=== PATIENT | female | born 1950 | race Caucasian/White ===

== ENCOUNTER → 2016-06-23 | Outpatient (CLI) | payer BC | END | disposition home or self-care (01) | LOC: C.PAPS 14:19 | PROVIDERS: ATTEND Obstetrics & Gynecology | DX: Z01.419 Encounter for gynecological examination (general) (routine) without abnormal findings (principal) ==

== ENCOUNTER 2023-08-29 08:50 | Inpatient (IN) ==
--- NOTE | 2023-08-29 09:29 | Emergency Department Note ---
Impression & Plan Fever, Sepsis, Acute UTI (urinary tract infection) ED Provider Note HISTORY OF PRESENT ILLNESS: Patient is a 73-year-old female presenting with fevers. Patient reports that for the last 4 days she has been having fevers ranging from 101-103. Reports has been alternating Tylenol and ibuprofen with little relief in her symptoms. Reports that her last dose of Tylenol was around 5 AM. States that she has intermittently had some dry heaves but no active vomiting or diarrhea. Denies any recent travel or recent sick contact exposures. Denies any chest pain or shortness of breath or cough. Denies any rashes. She does report some dysuria. Denies any abdominal pain. Reports that her temperature got up to 104 this morning, prompting her to present to the emergency department. ROS: as above PHYSICAL EXAM: Constitutional: Patient appears in no acute distress. HENT: Head: Normocephalic and atraumatic. Eyes: EOMI, PERRL Mouth/Throat: Mucous membranes moist. Neck: Trachea midline. Neck supple. Cardiovascular: Tachycardic with regular rhythm. No murmurs, rubs or gallops. Intact distal pulses. Pulmonary/Chest: No respiratory distress. Breath sounds clear and equal bilaterally. No wheezes or rales. Abdominal: Abdomen soft, no tenderness, rebound or guarding. Musculoskeletal: No edema, tenderness or deformity noted. Skin: Warm and dry. No rash, erythema, pallor or cyanosis Psychiatric: Appropriate mood and affect for situation. Neurological: Alert and keenly responsive. CN II-XII grossly intact, moving all extremities equally and fully. MDM: - Vitals signs showed fever and tachycardia. - History obtained via patient. History as above. - Chronic conditions affecting care:depression; HTN; HLD - Differential diagnoses include, but are not limited to: UTI; pneumonia; viral syndrome; bacteremia; electrolyte abnormality - Order placed for continuous cardiac monitoring. At this time, monitor showed rate of 98 bpm with normal sinus rhythm, per my interpretation. - External medical records reviewed. Gynecology visit note dated 04/18/2023 was reviewed. Patient follows in their clinic for her annual exam. Last Pap smear was in 2017 and negative - EKG interpreted by myself showed normal sinus rhythm. Rate tachycardic at 97 bpm. QT 348. No acute ischemic changes - Laboratory workup interpreted by myself showed leukocytosis (WBC 16.15) with left shift; slight hyponatremia (Na 133); normal creatinine; normal troponin; elevated procalcitonin (6.68) - Viral respiratory panel negative. - Patient given 30 mg IV toradol for fever. - CXR negative for pneumonia, per my interpretation - UA showed evidence of infection - Patient given total of 2L NS - sepsis fluid volume calculation based on ideal body weight 1704.3 mL. - Blood cultures obtained. Patient given 2g IV rocephin - Discussion was had with case managers about patient's case and need for admission - Patient meets sepsis criteria - Hospitalist consulted for admission - Patient admitted to [facility]ist service for further evaluation and management. ASSESSMENT AND PLAN: Diagnosis: fever; UTI; sepsis Plan: admit Past Med/Surg History Medical History Urinary urgency Sleep apnea Sensorineural hearing loss of both ears Prediabetes Obesity Mixed hyperlipidemia Hypertension Hemorrhoids Gastroparesis Esophageal reflux Encounter for routine gynecological examination with Papanicolaou smear of cervix Depression Asthma Allergic rhinitis Surgical History Hx of tubal ligation History of gastric surgery Hx of cholecystectomy Family History Mother Myelogenous leukemia Son Thyroid cancer Father Lung cancer Myocardial infarction Prostate cancer Brother No problems noted. Aunt Breast cancer Denies family history of Ovarian cancer Colorectal cancer Social History Smoking Status: Never smoker Do You Dip or Chew Tobacco: No; Feels Safe at Home: Yes Allergies Allergies Allergy/AdvReac Type Severity Reaction Status Date / Time amoxicillin [From Augmentin] Allergy Verified 04/18/23 13:27 clavulanic acid Allergy Verified 04/18/23 13:27 [From Augmentin] nicotine [From Nicoderm CQ] Allergy Verified 04/18/23 13:27 sulfamethoxazole Allergy Verified 04/18/23 13:27 [From Septra] trimethoprim [From Septra] Allergy Verified 04/18/23 13:27 Home Meds Home Medications Medication Instructions Recorded Confirmed cholecalciferol (vitamin D3) 50 1 PO .TAKE 1 CAPSULE Daily 03/29/20 04/18/23 mcg (2,000 unit) capsule fluticasone propionate 50 intranasal 03/29/20 04/18/23 mcg/actuation nasal spray,suspension multivitamin (Daily Multi-Vitamin 1 tab PO DAILY 03/29/20 04/18/23 tablet) naproxen 500 mg tablet mg PO .TAKE 1 TABLET TWICE DAILY 03/29/20 04/18/23 NEEDED. PRN venlafaxine 37.5 mg 1 mg PO .TAKE 1 CAPSULE Daily 03/29/20 04/18/23 capsule,extended release 24 hr Results & Data (ED) Vital Signs Vital Signs - 24 hr 08/29/23 09:05 08/29/23 09:53 08/29/23 09:53 Temperature 37.7 C H Temperature Source Temporal Artery Scan Pulse Rate 107 H 99 H 98 H Pulse Rate [Right Finger] Respiratory Rate 20 20 Respiratory Effort / Characteristics Non-Labored Respiratory Depth Normal Blood Pressure 134/85 Blood Pressure [Left Arm] Blood Pressure Mean 101 Blood Pressure Mean [Left Arm] Pulse Oximetry 97 98 Oxygen Delivery Method Room Air Room Air Sepsis Recent Fever Within 48 Hours No Sepsis New/Unexplained Change in Mental Status No Sepsis Action Taken by Nursing No Action Required 08/29/23 09:53 Temperature Temperature Source Pulse Rate Pulse Rate [Right Finger] 98 H Respiratory Rate 20 Respiratory Effort / Characteristics Respiratory Depth Blood Pressure Blood Pressure [Left Arm] 125/87 Blood Pressure Mean Blood Pressure Mean [Left Arm] 99 Pulse Oximetry 98 Oxygen Delivery Method Room Air Sepsis Recent Fever Within 48 Hours Sepsis New/Unexplained Change in Mental Status Sepsis Action Taken by Nursing Laboratory Data 08/29/23 09:40 08/29/23 09:40 Lab Results 08/29/23 08/29/23 Range/Units 09:40 Unknown WBC 16.15 H (4.8-10.8) K/ul RBC 4.14 L (4.20-5.40) M/uL Hgb 12.1 (12.0-16.0) g/dl Hct 37.7 (37.0-47.0) % MCV 91.1 (80.0-100.0) fL MCH 29.2 (25.0-34.0) pg MCHC 32.1 (32.0-36.0) g/dL RDW Std Deviation 43.2 (36.4-46.3) fL RDW Coeff of Jovanny 13.1 (11.5-14.5) % Plt Count 411 H (130-400) K/uL MPV 9.4 (9.4-12.4) fL Immature Gran % (Auto) 0.5 % Neut % (Auto) 84.4 % Lymph % (Auto) 4.8 % [place] % (Auto) 10.0 % Eos % (Auto) 0.1 % Baso % (Auto) 0.2 % Neut # (Auto) 13.63 H (1.40-6.50) K/uL Lymph # (Auto) 0.78 L (1.20-3.40) K/uL [place] # (Auto) 1.61 H (0.11-0.59) K/uL Eos # (Auto) 0.01 (0.00-0.50) K/uL Baso # (Auto) 0.04 (0.00-0.20) K/uL Immature Gran # (Auto) 0.08 (0.01-0.20) K/uL PT 11.3 (9.0-12.0) Seconds INR 1.0 (0.9-1.1) VBG pH 7.41 (7.36-7.41) VBG pCO2 39 (38-50) mmHg VBG pO2 27 mmHg VBG HCO3 25 mmol/L VBG O2 Saturation < 60.0 % VBG Base Excess 0.1 mEq/L Sodium 133 L (136-145) mmol/L Potassium 3.6 (3.5-5.1) mmol/L Chloride 101 (98-107) mmol/L Carbon Dioxide 24 (21-32) mmol/L Anion Gap 8 (3-11) BUN 17 (6-23) mg/dl Creatinine 1.00 (0.6-1.2) mg/dl Est Cr Clr Drug Dosing 52.6 ml/min Est GFR ( Amer) 65.6 ml/min Est GFR (Non-Af Amer) 56.6 ml/min BUN/Creatinine Ratio 17.0 (10-20) Glucose 122 H (70-99(Fasting)) mg/dl Lactate 1.3 (0.4-2.0) mmol/L Calcium 8.8 (8.6-10.3) mg/dl Magnesium 2.1 (1.7-2.4) mg/dl Total Bilirubin 0.5 (0.2-1.0) mg/dl Direct Bilirubin 0.2 (0-0.2) mg/dl AST 20 (13-39) U/L ALT 15 (7-52) U/L Alkaline Phosphatase 101 (34-104) U/L Troponin I High Sens 6.6 (0-14) pg/ml Total Protein 7.4 (6.0-8.3) gm/dl Albumin 3.7 (3.4-5.0) gm/dl Procalcitonin 6.68 H (0-0.5) ng/ml Urine Color Yellow Urine Appearance Cloudy A (Clear) Urine pH 5.5 (4.5-7.5) Ur Specific [place] 1.020 (1.000-1.030) Urine Protein 2+ H (Negative) Urine Glucose (UA) Negative (Negative) Urine Ketones Negative (Negative) Urine Blood 3+ H (Negative) Urine Nitrite Negative (Negative) Urine Bilirubin Negative (Negative) Urine Urobilinogen Negative (Negative) Ur Leukocyte Esterase 2+ H (Negative) Urine WBC (Auto) >30 H (0-5) /hpf Urine RBC (Auto) 10-30 H (0-4) /hpf U Hyaline Cast (Auto) 1-5 (0-5) /lpf U Epithel Cells (Auto) 5-10 H (0-5) /lpf Urine Bacteria (Auto) 4+ H (Negative) Adenovirus (PCR) Not Detected (NotDetected) B. pertussis DNA (PCR) Not Detected (NotDetected) B.parapertussis DNA PCR Not Detected (NotDetected) C. pneumoniae DNA (PCR) Not Detected (NotDetected) Coronavirus OC43 (PCR) Not Detected (NotDetected) Coronavirus HKU1 (PCR) Not Detected (NotDetected) Coronavirus 229E (PCR) Not Detected (NotDetected) SARS-CoV-2 (PCR) Not Detected (NotDetected) Coronavirus NL63 (PCR) Not Detected (NotDetected) Human Metapneumovir PCR Not Detected (NotDetected) Influenza Type A (PCR) Not Detected (NotDetected) Influenza Type B (PCR) Not Detected (NotDetected) M. pneumoniae (PCR) Not Detected (NotDetected) Parainfluenza 1 (PCR) Not Detected (NotDetected) Parainfluenza 2 (PCR) Not Detected (NotDetected) Parainfluenza 3 (PCR) Not Detected (NotDetected) Parainfluenza 4 (PCR) Not Detected (NotDetected) RSV (PCR) Not Detected (NotDetected) Entero/Rhino (PCR) Not Detected (NotDetected) Administered Medications Discontinued Medications Sodium Chloride (Nss) 1,000 mls @ 999 mls/hr IV .Q1H1M LAURA Stop: 08/29/23 10:30 Last Infusion: 08/29/23 10:56 Dose: Infused Documented By: Admin: 08/29/23 09:39 Dose: 999 mls/hr Documented By: DENISSE Ceftriaxone Sodium (Rocephin) 2,000 mg in 50 mls @ 100 mls/hr IV NOW STA Stop: 08/29/23 10:41 Last Admin: 08/29/23 10:39 Dose: 100 mls/hr Documented By: DENISSE Ketorolac Tromethamine (Ketorolac 30 Mg/Ml Vial) 30 mg IV NOW ONE Stop: 08/29/23 09:26 Last Admin: 08/29/23 09:39 Dose: 30 mg Documented By: DENISSE Imaging Data Radiologist's Impression: Chest X-Ray 08/29/23 09:16 XR chest 1V portable CLINICAL HISTORY: Sepsis. COMPARISON STUDY: Chest radiograph May 31, 2009. FINDINGS: Lung volumes are normal. Lungs are clear. There is no pneumothorax or pleural effusion. Cardiac size is normal. Mediastinal contours are normal. There is no evidence for pulmonary edema. IMPRESSION: No acute cardiopulmonary findings. ACT 112: Negative or not required by law. Electronically signed by: Christopher Dobbins M.D. 08/29/2023 9:44 AM Discharge Plan Visit Data Chief Complaint: Illness Stated Complaint: HIGH FEVER SINCE SUNDAY, CHILLS, REF BY DOCTOR ED Provider: Anna Alicia Discharge Problem: Fever, Sepsis, Acute UTI (urinary tract infection) Forms Stand Alone Forms: [facility] Prescriptions Prescriptions: No Action cholecalciferol (vitamin D3) 50 mcg (2,000 unit) capsule 1 PO .TAKE 1 CAPSULE Daily naproxen 500 mg tablet PO .TAKE 1 TABLET TWICE DAILY NEEDED. PRN fluticasone propionate 50 mcg/actuation spray,suspension intranasal multivitamin [Daily Multi-Vitamin] Tablet 1 tab PO DAILY venlafaxine 37.5 mg capsule,extended release 24hr 1 mg PO .TAKE 1 CAPSULE Daily Referrals Referrals: Christine oHlt [Primary Care Provider] -
[2023-08-29] MEDS: SODIUM CHLORIDE 0.9% 1,000 ML IV SCH (09:39)
[2023-08-29] MEDS: KETOROLAC 30 MG/ML VIAL IV ONE (09:39)
--- NOTE | 2023-08-29 09:45 | XRay Report ---
XR chest 1V portable CLINICAL HISTORY: Sepsis. COMPARISON STUDY: Chest radiograph May 31, 2009. FINDINGS: Lung volumes are normal. Lungs are clear. There is no pneumothorax or pleural effusion. Car diac size is normal. Mediastinal contours are normal. There is no evidence for pulmonary edema. IMPRESSION: No acute cardiopulmonary findings. ACT 112: Negative or not required by law. Electronically signed by: Christopher Dobbins M.D. 08/29/2023 9:44 AM
[2023-08-29 10:09] LABS: Appearance Urine Cloudy (Clear); Bacteria Urine Automated 4+ (Negative); Bilirubin Urine Negative (Negative); Blood Urine 3+ (Negative); Color Urine Yellow; Glucose Urine UA Negative (Negative); Ketones Urine Negative (Negative); Leukocyte Esterase Urine 2+ (Negative); Nitrite Urine Negative (Negative); Protein Urine 2+ (Negative); Urobilinogen Urine Negative (Negative); WBC Urine Automated >30 /hpf (0-5); pH Urine 5.5 (4.5-7.5)
[2023-08-29 10:11] LABS: Base Excess VBG 0.1 mEq/L; HCO3 VBG 25 mmol/L; Oxygen Saturation VBG < 60.0 %; PCO2 VBG 39 mmHg (38-50); PO2 VBG 27 mmHg; pH VBG 7.41 (7.36-7.41)
[2023-08-29 10:26] LABS: Basophils # (auto) 0.04 K/uL (0.00-0.20); Basophils % (auto) 0.2 %; Eosinophils # (auto) 0.01 K/uL (0.00-0.50); Eosinophils % (auto) 0.1 %; Hematocrit (blood only) 37.7 % (37.0-47.0); Hemoglobin 12.1 g/dl (12.0-16.0); Immature Granulocytes # (auto) 0.08 K/uL (0.01-0.20); Immature Granulocytes % (auto) 0.5 %; Lymphocytes # (auto) 0.78 K/uL (1.20-3.40); Lymphocytes % (auto) 4.8 %; Mean Corpuscular Hemoglobin 29.2 pg (25.0-34.0); Mean Corpuscular Hgb Conc 32.1 g/dL (32.0-36.0); Mean Corpuscular Volume 91.1 fL (80.0-100.0); Mean Platelet Volume 9.4 fL (9.4-12.4); Monocytes # (auto) 1.61 K/uL (0.11-0.59); Neutrophils # (auto) 13.63 K/uL (1.40-6.50); Neutrophils % (auto) 84.4 %; Platelet Count 411 K/uL (130-400); RDW Coefficient of Variation 13.1 % (11.5-14.5); RDW Standard Deviation 43.2 fL (36.4-46.3); Red Blood Count 4.14 M/uL (4.20-5.40); White Blood Count 16.15 K/ul (4.8-10.8)
[2023-08-29] MEDS: cefTRIAXone SODIUM 2,000 MG/50 ML BAG IV STA (10:39)
[2023-08-29 10:43] LABS: Albumin Level 3.7 gm/dl (3.4-5.0); Bilirubin Direct 0.2 mg/dl (0-0.2); Bilirubin,Total 0.5 mg/dl (0.2-1.0); Calcium 8.8 mg/dl (8.6-10.3); Creatinine Clr Calc Pharmacy 52.6 ml/min; Est GFR (African American) 65.6 ml/min; Est GFR (Non-African American) 56.6 ml/min; Magnesium 2.1 mg/dl (1.7-2.4); Potassium 3.6 mmol/L (3.5-5.1); Total Protein 7.4 gm/dl (6.0-8.3)
[2023-08-29 10:48] LABS: Troponin I High Sensitivity 6.6 pg/ml (0-14)
[2023-08-29 10:51] LABS: Prothrombin Time 11.3 Seconds (9.0-12.0)
--- NOTE | 2023-08-29 11:03 | History & Physical Report ---
Date of Service August 29, 2023 Assessment & Plan (1) Acute UTI (urinary tract infection): Plan: Intermittent fever, chills, dysuria, burning with urination, and body-aches that began on Friday 08/25 Leukocytosis at 16.15 with a neutrophil predominance Patient is febrile at 37.7 C UA positive on arrival Rocephin 2000 mg IV q24h Follow UCx Acetaminophen as needed for fever/pain Zofran as needed for nausea A.m. CBC, BMP (2) Sepsis: Plan: Urinary source Procalcitonin elevated at 6.68 Lactate WNL at 1.3 Blood cultures ordered, pending IVF resuscitation in the ED with NSS 1000 mL x 2 Continue IVF with Plasma-Lyte at 100 mL/hr x 1 (3) Depression: Plan: Continue venlafaxine Plan Disposition: Admit to [facility] Full code Regular diet DVT PPx: Lovenox 40 mg SQ q24h History of Present Illness Chief Complaint: Fever, chills, body ache, dysuria Primary Care Provider: Milobetito Jonathon Paul is a pleasant 73-year-old female with PMH of She presented for fever, chills, and body aches that started on Friday 08/25. She took her temperature at home on Sunday and it was 103.9 F. She has not had intermittent fevers on Sunday and Sunday. Patient has been alternating between Tylenol (2 tablets) and ibuprofen (2 tablets) for her symptoms. She has also been using Vicks VapoRub, as well as a cold and flu cough suppressant, which has been helping. No sick contacts. No history of UTIs. No recent change in diet. No history of kidney stones. She is not currently having abdominal pain, suprapubic pain, flank pain, or back pain. She does note increased urinary frequency, dysuria, and burning with urination. Patient only takes venlafaxine as a prescription medication, but she did not take it this morning on 08/28. She reports she takes it for stress. Patient is mildly tachycardic around 100 bpm and febrile at 37.7 C at time of admission. ED course: Rocephin 2000 mg IV Toradol 30 mg IV NSS 1000 mL IV ROS: Patient endorses fever, chills, night-sweats, body aches, ZARAGOZA, nausea, burning with urination, dysuria, or increased urinary frequency. Patient denies chest pain, chest tightness, SOB, cough, back pain, flank pain, vomiting, diarrhea, constipation, or blood in urine/stool. Allergies Allergy/AdvReac Type Severity Reaction Status Date / Time amoxicillin [From Augmentin] Allergy Verified 04/18/23 13:27 clavulanic acid Allergy Verified 04/18/23 13:27 [From Augmentin] nicotine [From Nicoderm CQ] Allergy Verified 04/18/23 13:27 sulfamethoxazole Allergy Verified 04/18/23 13:27 [From Septra] trimethoprim [From Septra] Allergy Verified 04/18/23 13:27 Home Medications Medication Instructions Recorded Confirmed Type cholecalciferol (vitamin D3) 50 1 PO .TAKE 1 CAPSULE Daily 03/29/20 04/18/23 History mcg (2,000 unit) capsule fluticasone propionate 50 intranasal 03/29/20 04/18/23 History mcg/actuation nasal spray,suspension multivitamin (Daily Multi-Vitamin 1 tab PO DAILY 03/29/20 04/18/23 History tablet) naproxen 500 mg tablet mg PO .TAKE 1 TABLET TWICE DAILY 03/29/20 04/18/23 History NEEDED. PRN venlafaxine 37.5 mg 1 mg PO .TAKE 1 CAPSULE Daily 03/29/20 04/18/23 History capsule,extended release 24 hr Past Med/Surg History Medical History Urinary urgency Sleep apnea Sensorineural hearing loss of both ears Prediabetes Obesity Mixed hyperlipidemia Hypertension Hemorrhoids Gastroparesis Esophageal reflux Encounter for routine gynecological examination with Papanicolaou smear of cervix Depression Asthma Allergic rhinitis Surgical History Hx of tubal ligation History of gastric surgery Hx of cholecystectomy Family History Mother Myelogenous leukemia Son Thyroid cancer Father Lung cancer Myocardial infarction Prostate cancer Brother No problems noted. Aunt Breast cancer Denies family history of Ovarian cancer Colorectal cancer Social History Smoking Status: Never smoker Do You Dip or Chew Tobacco: No; Feels Safe at Home: Yes Review of Systems Review of Systems: See HPI above Physical Exam Physical Exam: General: no acute distress; pleasant affect; non-toxic appearing; well- nourished; cooperative; 98% SpO2 on RA HEENT: normocephalic, atraumatic; no scleral icterus; PERRLA; vision and hearing grossly intact Neck: supple; no lymphadenopathy; trachea midline Skin: warm, dry without signs of tenting; no cyanosis; no rashes, bruising, lesions, or erythema noted CV: chest wall NTP; RR, mild tachycardia around 100 bpm; S1/S2 normal; no murmurs/rubs/gallops; pulses intact and symmetric at radial, DP, and PT Lungs: no acute respiratory distress; symmetrical chest wall expansion; clear breath sounds across all lung [place] w/o adventitious sounds; no wheezing ABD: Soft, NTP; no suprapubic tenderness; BS present; no rebound/guarding; no distention MSK: no tics or fasciculations; no edema noted in the LEs b/l, nonerythematous Neuro: A&Ox3; normal mood and affect; fluent speech; sensation grossly intact in the LEs b/l Results & Data Results & Data Vital Signs (Past 12 Hours) Vital Signs Temp Pulse Pulse Resp BP BP Pulse Ox 08/29/23 09:53 98 H 20 125/87 98 08/29/23 09:53 98 H 20 98 08/29/23 09:53 99 H 08/29/23 09:05 37.7 C H 107 H 20 134/85 97 O2 Del Method 08/29/23 09:53 Room Air 08/29/23 09:53 Room Air 08/29/23 09:53 08/29/23 09:05 Room Air Laboratory Results Abnormal lab results 08/29/23 Range/Units 09:40 WBC 16.15 H (4.8-10.8) K/ul RBC 4.14 L (4.20-5.40) M/uL Plt Count 411 H (130-400) K/uL Neut # (Auto) 13.63 H (1.40-6.50) K/uL Lymph # (Auto) 0.78 L (1.20-3.40) K/uL [place] # (Auto) 1.61 H (0.11-0.59) K/uL Sodium 133 L (136-145) mmol/L Glucose 122 H (70-99(Fasting)) mg/dl Procalcitonin 6.68 H (0-0.5) ng/ml Urine Appearance Cloudy A (Clear) Urine Protein 2+ H (Negative) Urine Blood 3+ H (Negative) Ur Leukocyte Esterase 2+ H (Negative) Urine WBC (Auto) >30 H (0-5) /hpf Urine RBC (Auto) 10-30 H (0-4) /hpf U Epithel Cells (Auto) 5-10 H (0-5) /lpf Urine Bacteria (Auto) 4+ H (Negative) Diagnostic Findings Chest X-Ray 08/29/23 09:16 XR chest 1V portable CLINICAL HISTORY: Sepsis. COMPARISON STUDY: Chest radiograph May 31, 2009. FINDINGS: Lung volumes are normal. Lungs are clear. There is no pneumothorax or pleural effusion. Cardiac size is normal. Mediastinal contours are normal. There is no evidence for pulmonary edema. IMPRESSION: No acute cardiopulmonary findings. ACT 112: Negative or not required by law. Electronically signed by: Christopher Dobbins M.D. 08/29/2023 9:44 AM Code Status & VTE Plan Code Status Full code VTE Prophylaxis Plan VTE Prophylaxis will be ordered: Yes Supervising Physician Co-Signing Physician Notes Patient seen and examined, chart reviewed, case discussed with Dat Valencia and I agree with the assessment and plan as above except as otherwise noted Labs and images reviewed Beverly is a 73-year-old female who presents with fever, chills, body aches, and some chest tightness with pain. She is seen at the bedside, reports that she has had dysuria, urgency, and some burning with urination in addition to fever. She has not had any cough or sputum production. She feels she had a little bit of chest tightness but no pain, and this actually seemed improved with Vicks VapoRub. Denies any pain radiating into her left shoulder or neck, has not had shortness of breath, and has not had exertional angina. No prior cardiac history. She has no chest pain at time of admitting assessment. She does not have any abdominal flank or back pain she is found to be tachycardic with a leukocytosis and procalcitonin of 6.68. UA is infected appearing. Chest x-ray is clear. Bio fire is negative. Troponin is normal, EKG is without acute ischemic changes. Lactate is not elevated. IBW 30 cc fluid calculations 1704,ABW 2274 patient has received 2 L NSS by time of admission consultation. +1 L additional at maintenance. She is not hypotensive. Blood and urine cultures are pending, continue empiric Rocephin and adjust based on sensitivity results. She does not show signs of ACS at time of admission. She is nontoxic at time of admitting assessment and normotensive. Suspect septic UTI with gram-negative bacteremia. Agree with assessment and management as above. PG Care Time/CCT Total # of Minutes Spent Total Time Spent with Patient: Total time spent is greater than 50% in coordination of care (as documented) at patient's floor/unit and/or counseling patient: [place] [address] INT INP/OBS CARE 2/55MIN Patient Type New History Comprehensive Exam Comprehensive Medical Decision Making Moderate Complexity Diagnoses Acute UTI (urinary tract infection) N39.0 Sepsis A41.9 Depression F32.A
[2023-08-29 11:09] LABS: Adenovirus PCR Not Detected (NotDetected); Bordetella parapertussis PCR Not Detected (NotDetected); Bordetella pertussis PCR Not Detected (NotDetected); Chlamydia pneumoniae PCR Not Detected (NotDetected); Coronavirus 229E PCR Not Detected (NotDetected); Coronavirus CoV-2 (COVID19)PCR Not Detected (NotDetected); Coronavirus HKU1 PCR Not Detected (NotDetected); Coronavirus NL63 PCR Not Detected (NotDetected); Coronavirus OC43PCR Not Detected (NotDetected); Human Metapneumovirus PCR Not Detected (NotDetected); Influenza A PCR Not Detected (NotDetected); Influenza B PCR Not Detected (NotDetected); Mycoplasma pneumoniae PCR Not Detected (NotDetected); Parainfluenza Virus 1 PCR Not Detected (NotDetected); Parainfluenza Virus 2 PCR Not Detected (NotDetected); Parainfluenza Virus 3 PCR Not Detected (NotDetected); Parainfluenza Virus 4 PCR Not Detected (NotDetected); Respiratory Syncytial VirusPCR Not Detected (NotDetected); Rhinovirus/Enterovirus PCR Not Detected (NotDetected)
[2023-08-29] MEDS: SODIUM CHLORIDE 0.9% 1,000 ML IV ONE (11:26)
[2023-08-29] MEDS: VENLAFAXINE HCL XR 37.5 MG CAPXR PO SCH ×2 (13:30→15:39)
[2023-08-29] MEDS: PLASMA-LYTE A 1,000 ML IV SCH (13:57)
[2023-08-29] MEDS: ENOXAPARIN INJ 40 MG/0.4 ML SYR SQ SCH (13:59)
--- NOTE | 2023-08-29 16:14 | Electrocardiogram Report ---
Test Reason : Blood Pressure : / mmHG Vent. Rate : 097 BPM Atrial Rate : 097 BPM P-R Int : 120 ms QRS Dur : 070 ms QT Int : 348 ms P-R-T Axes : 048 014 033 degrees QTc Int : 441 ms Normal sinus rhythm Possible Left atrial enlargement Borderline ECG When compared with ECG of 25-MAY-2004 18:25, No significant change was found Confirmed by Rakesh Sarmiento ([id number]) on 08/29/2023 4:14:12 PM Referred By: REFERRED SELF Confirmed By:Rakesh Sarmiento
[2023-08-29] MEDS: ONDANSETRON INJ 2 MG/ML 2 ML VIAL IV PRN (18:07)
[2023-08-29] MEDS: ACETAMINOPHEN 500 MG TAB PO PRN (19:49)
[2023-08-29 22:46] LABS: A calco-baum cmplx NotReported Not Detected (NotDetected); Bact fragilis Not Reported Not Detected (NotDetected); Blood Culture Id Panel See PCR Comment (NotDetected); C auris Not Reported Not Detected (NotDetected); CTX-M Resistant Gene Not Detected (NotDetected); Calbicans Not Reported Not Detected (NotDetected); Candida glabrata Not Reported Not Detected (NotDetected); Candida krusei Not Reported Not Detected (NotDetected); Cneoformans/gatti Not Reported Not Detected (NotDetected); Cparapsilosis Not Reported Not Detected (NotDetected); E cloacae compx Not Reported Not Detected (NotDetected); Efaecalis Not Reported Not Detected (NotDetected); Efaecium Not Reported Not Detected (NotDetected); Enterobacterales DETECTED (NotDetected); Enterobacterales Not Reported DETECTED (NotDetected); Escherichia coli Not Reported DETECTED (NotDetected); H influenzae Not Reported Not Detected (NotDetected); IMP Resistant Gene Not Detected (NotDetected); K aerogenes Not Reported Not Detected (NotDetected); KPC Resistant Gene Not Detected (NotDetected); Koxytoca Not Reported Not Detected (NotDetected); Kpneumoniae grp Not Reported Not Detected (NotDetected); Lmonocyt Not Reported Not Detected (NotDetected); N meningitidis Not Reported Not Detected (NotDetected); NDM Resistant Gene Not Detected (NotDetected); OXA 48 Like Resistant Gene Not Detected (NotDetected); P aeruginosa Not Reported Not Detected (NotDetected); Proteus spp Not Reported Not Detected (NotDetected); Salmonella spp Not Reported Not Detected (NotDetected); Smarcescens Not Reported Not Detected (NotDetected); Staph lugdunensis Not Reported Not Detected (NotDetected); Staph spp. Not Reported Not Detected (NotDetected); Staphaureus Not Reported Not Detected (NotDetected); Staphepi Not Reported Not Detected (NotDetected); Stenmaltophilia Not Reported Not Detected (NotDetected); Strep agal(GrpB) Not Reported Not Detected (NotDetected); Strep pneum Not Reported Not Detected (NotDetected); Strep pyog (GrpA) Not Reported Not Detected (NotDetected); Strep spp Not Reported Not Detected (NotDetected); VIM Resistant Gene Not Detected (NotDetected); mcr-1 Colistin Resistant Gene Not Detected (NotDetected)
[2023-08-30 07:44] LABS: Basophils # (auto) 0.03 K/uL (0.00-0.20); Basophils % (auto) 0.3 %; Hemoglobin 9.8 g/dl (12.0-16.0); Immature Granulocytes # (auto) 0.06 K/uL (0.01-0.20); Immature Granulocytes % (auto) 0.5 %; Lymphocytes # (auto) 1.48 K/uL (1.20-3.40); Lymphocytes % (auto) 12.4 %; Mean Corpuscular Hemoglobin 29.2 pg (25.0-34.0); Mean Corpuscular Hgb Conc 32.7 g/dL (32.0-36.0); Mean Corpuscular Volume 89.3 fL (80.0-100.0); Mean Platelet Volume 9.1 fL (9.4-12.4); Monocytes # (auto) 1.13 K/uL (0.11-0.59); Monocytes % (auto) 9.5 %; Neutrophils # (auto) 9.19 K/uL (1.40-6.50); Neutrophils % (auto) 77.3 %; Platelet Count 355 K/uL (130-400); RDW Coefficient of Variation 13.3 % (11.5-14.5); RDW Standard Deviation 43.8 fL (36.4-46.3); Red Blood Count 3.36 M/uL (4.20-5.40); White Blood Count 11.89 K/ul (4.8-10.8)
[2023-08-30 08:11] LABS: BUN Creatinine Ratio 12.3 (10-20); Creatinine Clr Calc Pharmacy 64.8 ml/min; Est GFR (African American) 84.7 ml/min; Est GFR (Non-African American) 73.1 ml/min; Potassium 3.6 mmol/L (3.5-5.1)
[2023-08-30] MEDS: cefTRIAXone SODIUM 2,000 MG in DEXTROSE 5 % MINI-B 50 ML IV SCH (09:29)
--- NOTE | 2023-08-30 18:50 | Hospitalist Progress Note ---
Date of Service August 30, 2023 Assessment & Plan (1) Acute UTI (urinary tract infection): Plan: Patient presented to ED with intermittent fever and chills, dysuria, and bodyaches that began on 08/25 Leukocytosis on admission improving UA positive on admission. Preliminary urine culture shows gram-negative bacilli. Continue to monitor for sensitivities. Ceftriaxone 2 g IV Q24H (last dose 09/09/2023) Acetaminophen as needed for fever/pain (2) Sepsis: Plan: Septic on arrival to ED secondary to urinary source, with elevated procalcitonin with normal lactic acid Preliminary blood cultures positive for gram-negative bacilli. PCR detected E. coli and Enterobacterales. Continue to monitor for sensitivities. Continue ceftriaxone as noted above Plan Full code DVT PPx: Lovenox 40 mg SQ q24h Admission and Anticipated Discharge Date Admission Date: August 29, 2023 Subjective Patient seen and evaluated at bedside. She was resting comfortably in bed and had no complaints. She reports her dysuria has resolved. She stated desire to go home, however we discussed waiting for blood culture and urine culture to be resulted with sensitivities for antibiotic decision making. She was agreeable to this. She denies fever, chills, chest pain, shortness of breath, abdominal pain, urinary symptoms. Physical Exam Physical Exam: General: No acute distress, nondiaphoretic, well-developed, well-nourished. Skin: The skin was without rashes, erythema, edema, or bruising. Cardiac: Regular rate and rhythm without murmurs gallops or rubs. Pulm: Clear to auscultation bilaterally without wheezes, rales or rhonchi. No retractions or accessory muscle use. Abdominal: Positive bowel sounds x 4. Soft, nontender, without masses or orga nomegaly. No guarding or rebound tenderness. Neuro: A&O x3. No focal neurological deficits. Results & Data Results & Data Vital Signs (Past 12 Hours) Vital Signs Temp Pulse Resp BP Pulse Ox O2 Del Method 08/30/23 13:52 37.1 C 82 16 107/71 96 Room Air 08/30/23 07:31 37.3 C 98 H 16 140/82 95 Room Air Laboratory Results Reviewed CBC Reviewed chemistries Reviewed urine culture Reviewed blood cultures PG Care Time/CCT Total # of Minutes Spent Total Time Spent with Patient: Total time spent is greater than 50% in coordination of care (as documented) at patient's floor/unit and/or counseling patient: Coding Level of Care Code 71451 SUB INP/OBS CARE 50MIN Diagnoses Acute UTI (urinary tract infection) N39.0 Sepsis A41.9
[2023-08-30] MEDS: IBUPROFEN 600 MG TAB PO STA (23:30)
[2023-08-31 07:17] LABS: Basophils # (auto) 0.02 K/uL (0.00-0.20); Basophils % (auto) 0.3 %; Eosinophils % (auto) 2.5 %; Immature Granulocytes # (auto) 0.04 K/uL (0.01-0.20); Immature Granulocytes % (auto) 0.5 %; Lymphocytes # (auto) 1.52 K/uL (1.20-3.40); Mean Corpuscular Hemoglobin 29.5 pg (25.0-34.0); Mean Corpuscular Hgb Conc 32.4 g/dL (32.0-36.0); Mean Corpuscular Volume 91.2 fL (80.0-100.0); Mean Platelet Volume 9.2 fL (9.4-12.4); Monocytes # (auto) 1.06 K/uL (0.11-0.59); Monocytes % (auto) 13.3 %; Neutrophils # (auto) 5.16 K/uL (1.40-6.50); Neutrophils % (auto) 64.4 %; Platelet Count 359 K/uL (130-400); RDW Coefficient of Variation 13.4 % (11.5-14.5); RDW Standard Deviation 44.9 fL (36.4-46.3); Red Blood Count 3.73 M/uL (4.20-5.40)
[2023-08-31 07:45] LABS: BUN Creatinine Ratio 14.1 (10-20); Creatinine Clr Calc Pharmacy 73.9 ml/min; Est GFR (African American) 99.3 ml/min; Est GFR (Non-African American) 85.7 ml/min; Potassium 3.4 mmol/L (3.5-5.1)
--- NOTE | 2023-08-31 16:05 | Discharge Summary ---
Date of Service August 31, 2023 Admission HPI Per Admitting Provider Beverly is a pleasant 73-year-old female with PMH of She presented for fever, chills, and body aches that started on Friday 08/25. She took her temperature at home on Sunday and it was 103.9 F. She has not had intermittent fevers on Sunday and Sunday. Patient has been alternating between Tylenol (2 tablets) and ibuprofen (2 tablets) for her symptoms. She has also been using Vicks VapoRub, as well as a cold and flu cough suppressant, which has been helping. No sick contacts. No history of UTIs. No recent change in diet. No history of kidney stones. She is not currently having abdominal pain, suprapubic pain, flank pain, or back pain. She does note increased urinary frequency, dysuria, and burning with urination. Patient only takes venlafaxine as a prescription medication, but she did not take it this morning on 08/28. She reports she takes it for stress. Patient is mildly tachycardic around 100 bpm and febrile at 37.7 C at time of admission. ED course: Rocephin 2000 mg IV Toradol 30 mg IV NSS 1000 mL IV ROS: Patient endorses fever, chills, night-sweats, body aches, ZARAGOZA, nausea, burning with urination, dysuria, or increased urinary frequency. Patient denies chest pain, chest tightness, SOB, cough, back pain, flank pain, vomiting, diarrhea, constipation, or blood in urine/stool. Admission Exam Per Admitting Provider General: no acute distress; pleasant affect; non-toxic appearing; well- nourished; cooperative; 98% SpO2 on RA HEENT: normocephalic, atraumatic; no scleral icterus; PERRLA; vision and hearing grossly intact Neck: supple; no lymphadenopathy; trachea midline Skin: warm, dry without signs of tenting; no cyanosis; no rashes, bruising, lesions, or erythema noted CV: chest wall NTP; RR, mild tachycardia around 100 bpm; S1/S2 normal; no murmurs/rubs/gallops; pulses intact and symmetric at radial, DP, and PT Lungs: no acute respiratory distress; symmetrical chest wall expansion; clear breath sounds across all lung noland w/o adventitious sounds; no wheezing ABD: Soft, NTP; no suprapubic tenderness; BS present; no rebound/guarding; no distention MSK: no tics or fasciculations; no edema noted in the LEs b/l, nonerythematous Neuro: A&Ox3; normal mood and affect; fluent speech; sensation grossly intact in the LEs b/l Principal Diagnosis Acute UTI Sepsis from urinary source Discharge Exam General: No acute distress, nondiaphoretic, well-developed, well-nourished. Skin: The skin was without rashes, erythema, edema, or bruising. Cardiac: Regular rate and rhythm without murmurs gallops or rubs. Pulm: Clear to auscultation bilaterally without wheezes, rales or rhonchi. No retractions or accessory muscle use. Abdominal: Positive bowel sounds x 4. Soft, nontender, without masses or organomegaly. No guarding or rebound tenderness. Neuro: A&O x3. No focal neurological deficits. Discharge Data Allergies Allergy/AdvReac Type Severity Reaction Status Date / Time amoxicillin [From Augmentin] Allergy Verified 04/18/23 13:27 clavulanic acid Allergy Verified 04/18/23 13:27 [From Augmentin] nicotine [From Nicoderm CQ] Allergy Verified 04/18/23 13:27 sulfamethoxazole Allergy Verified 04/18/23 13:27 [From Septra] trimethoprim [From Septra] Allergy Verified 04/18/23 13:27 Consultations 08/29/23 11:04 ED Decision to Admit Stat Hospital Course (1) Acute UTI (urinary tract infection): - Patient presented to ED with intermittent fever and chills, dysuria, and body aches that began on 08/25 - Leukocytosis present on admission, resolved - UA positive on admission. Urine culture positive for pansensitive E. coli. - Ciprofloxacin upon discharge until 09/09/2023 (2) Sepsis: - Septic on arrival to ED secondary to urinary source, with elevated procalcitonin with normal lactic acid - Blood cultures positive for pansensitive E. coli. Antibiotics on discharge as noted above. Plan CODE STATUS: Full code Total Time Total Time Spent Total Time Spent (In Minutes): Greater than 30 minutes spent completing this discharge process including direct patient care, medication reconciliation, documentation, review of labs and images, and coordination of care. Discharge Plan Discharge Items Patient Disposition: Home - Self-Care Reason For Visit: SEPSIS, UTI Discharge Diagnosis: Urinary tract infection (UTI) Bacteremia (bacteria in blood) Activity: Resume your previous activity Non-emergency contact: Primary Care Provider Call non-emergency contact if: you have any medication questions and your symptoms worsen Follow-up/Referrals: Christine Holt [Primary Care Provider] - 09/04/23 10:25 am (Dr. Rose and Dr. Holt will be attending ) Diet: Regular Addtl Attending Provider Instructions: Mrs. Washington, You were admitted to the hospital for a urinary tract infection (UTI) and sepsis. This is what caused your fever and chills, painful urination, and body aches that brought you into the hospital. You were given IV antibiotics while in the hospital, and you will continue taking oral antibiotics upon discharge. Upon discharge from the hospital: * Please take your oral antibiotic (ciprofloxacin) until 09/09/2023. -- You will take this antibiotic twice a day. -- It is important to take this exactly as directed. Do not stop taking it until all of the make medication is gone, even if you feel better. The infection may not go away fully and return if you stop taking the antibiotic too soon. -- This will treat the UTI as well as the bacteria in your blood. -- Avoid taking this with foods containing large amounts of calcium, like milk, yogurt, or cheese. -- This medicine may make you dizzy or lightheaded. Avoid driving until you know how it will affect you. -- Other rare, but important side effects to be aware of include confusion, difficulty sleeping or remembering things, and tendinitis (inflammation of a tendon). Please return to the hospital if you experience any of the following: Fever or chills, shortness of breath, chest pain, fast heartbeat, fast breathing, dizziness, confusion, less urination, or painful urination. It was a pleasure taking care of you while you are in the hospital, Juliet Ohara PA-C Pending Studies at Discharge: No Stand-Alone Forms: My [facility] [employer], Smoking Cessation Medications and DC Order Prescriptions: New ciprofloxacin HCl [Cipro] 500 mg tablet 500 mg PO BID Qty: 18 0RF Continued cholecalciferol (vitamin D3) 50 mcg (2,000 unit) capsule 0 mcg PO DAILY Rx Instructions: unable to verify with patient/pharmacy 08/29/23 naproxen 500 mg tablet 0 mg PO .TAKE 1 TABLET TWICE DAILY NEEDED. PRN (Reason: pain/fever) Rx Instructions: unable to verify with patient/pharmacy 08/29/23 fluticasone propionate 50 mcg/actuation spray,suspension See Rx Instructions .ROUTE .COMPLEX Rx Instructions: unable to verify with patient/pharmacy 08/29/23 multivitamin [Daily Multi-Vitamin] Tablet 1 tab PO DAILY Rx Instructions: unable to verify with patient/pharmacy 08/29/23 venlafaxine 37.5 mg capsule,extended release 24hr 37.5 mg PO DAILY Tylenol See Rx Instructions .ROUTE .COMPLEX PRN (Reason: pain/fever) Rx Instructions: as directed, otc ibuprofen See Rx Instructions .ROUTE .COMPLEX PRN (Reason: pain/fever) Rx Instructions: as directed, otc Discharge Orders: Discharge Order (Routine); Ordered 08/31/23 Ordered By: uJliet Benson/Other Patient Handouts: Urinary Tract Infections in Women, Understanding Sepsis Admission Data Admit Date/Time: 08/29/23 11:27 Attending Provider: Valdemar Garcia Admit Provider: Rodrigo Ryan Primary Care Provider: Christine Holt Other Providers: Rodrigo Ryan Other Interventions: Discharge Summary Assessment (RN) Last Done: 08/31/23 12:44 Coding Level of Care Code 00901 INP/OBS DISCH >30 MIN Diagnoses Acute UTI (urinary tract infection) N39.0 Sepsis A41.9
== END 2023-08-31 13:18 | disposition home or self-care (01) | DRG 872 ==
LOC: ED 08:50 → SUATTDRO 11:27 → 3W 11:27

== ENCOUNTER 2025-05-18 14:50 | Inpatient (IN) ==
--- NOTE | 2025-05-18 15:20 | Emergency Department Note ---
ED Visit Note I was consulted by the Advanced Practice Provider, Magdalene Long PA-C. I personally made/approved the management plan and take responsibility for the patient management. I performed a substantive portion of the visit. This includes the aspects of: -History/Physical/Personally seeing the patient -MDM .
[2025-05-18] MEDS ORDERED: VANCOMYCIN CONSULT ACTIVE PRN ×2 (15:22→17:12)
--- NOTE | 2025-05-18 15:24 | Emergency Department Note ---
Impression & Plan Toe infection, Cellulitis, Osteomyelitis ED Provider Note CHIEF COMPLAINT: right 2nd toe redness, pain, discharge HISTORY OF PRESENT ILLNESS: This 75-year-old female patient presents to the emergency department via private vehicle for evaluation of right second toe redness, pain, and discharge. Symptoms started 2 to 3 days ago. Patient states that she noticed some swelling and irritation and thought maybe there was an insect or spider bite. The patient states that she then felt that the toe was swollen and itchy and she had been scratching at it. She then noticed a slight open wound and some increased swelling, so she put a needle into the wound to try to get it to drain. She states there has not been significant drainage unless she picks at it. She states the redness and pain is extending into the foot. She does report a history of psoriasis on her foot and ankle. She states she is unaware of any lesions on the toes. She denies any fever or chills. No nausea or vomiting. No recent injury or trauma to the toe. She denies any numbness or tingling. No history of similar symptoms. Tetanus vaccination is believed to be up-to-date. History provided by: Patient REVIEW OF SYSTEMS: A 10 system review of systems was performed with positives and pertinent negatives listed in the history of present illness. All other systems were reviewed and are negative. ALLERGIES: Augmentin, NicoDerm, Septra PHYSICAL EXAM: VITALS: Vitals are noted on the nurse's note and reviewed by myself. GENERAL: This is a 75-year-old female, in no acute distress, nondiaphoretic, well-developed well-nourished. SKIN: Erythema and edema of the right 2nd toe with pinpoint open wound with purulent discharge. Erythema extends toward the proximal distal aspect of the right foot. There is erythematous patches with fine scales on the anterior ankle and dorsal foot more proximally which is consistent with the patient psoriasis lesions. The skin was otherwise without rashes, erythema, edema, or bruising. There is no tenting of the skin. Capillary refill less than 2 seconds. HEAD: Normocephalic atraumatic. EYES: Conjunctivae without injection, sclerae without icterus. MOUTH: Mucous membranes moist. NECK: Supple without nuchal rigidity. No JVD. HEART: Regular rate and rhythm without murmurs gallops or rubs. LUNGS: Clear to auscultation bilaterally without wheezes, rales or rhonchi. No retractions or accessory muscle use. MUSCULOSKELETAL: No muscle atrophy, erythema, or edema noted. Full range of motion without joint tenderness in all extremities. No tenderness to palpation. Normal gait. Strength 5/5 throughout. NEURO: Patient was alert and oriented to person place and time. Normal sensation to light and sharp touch. Deep tendon reflexes 2+ throughout. No focal neurological deficits. An order was placed for continuous brass reclaimer. The monitor showed a normal sinus rhythm at a ventricular rate of 83 bpm, per my interpretation. Imaging as interpreted by myself and the radiologist revealed concern for osteomyelitis of the right second toe, with radiologist interpretation as above. I agree with the radiologist's findings as based upon my independent interpretation. EMERGENCY DEPARTMENT COURSE: The patient was evaluated as above. The patient presents to the emergency department for evaluation of right second toe redness, pain, discharge. This started 3 days ago and the patient thought she had some sort of a bite. On examination, there is purulent discharge from the wound. The entire second digit is erythematous and edematous. We did elect to perform workup. IV access was obtained, labs were drawn. The patient was hydrated with IV fluids and medicated with vancomycin and ceftriaxone. Labs reviewed. Per my interpretation, leukocytosis of 11,000. No anemia or thrombocytopenia. Renal, hepatic function and electrolytes without significant abnormality. Procalcitonin less than 0.02. CRP is normal, ESR is elevated at 40. X-ray completed reviewed by myself radiologist as noted. This is concerning for osteomyelitis. I discussed findings with patient at bedside. 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 The patient was agreeable. The patient be admitted to the [facility]. I discussed the case with Dr. March. Please see hospitalist dictation regarding ongoing management of this patient. Case was discussed with the attending physician. This visit is during a period of high volume and high acuity in the emergency department. I attest that I have personally reviewed the patient medication list. I attest that I have reviewed the patient's blood pressure and it was found to be elevated. GCS: 15 In the evaluation and treatment of this patient the following differential diagnoses were entertained: Cellulitis, abscess, osteomyelitis, malignancy, among others The chart was completed utilizing [employer] Speech voice recognition software. Grammatical errors, random word insertions, pronoun errors, and incomplete sentences are an occasional consequence of this system due to software limitations, ambient noise, and hardware issues. Any formal questions or concerns about the content, text, or information contained within the body of this dictation should be directly addressed to the provider for clarification. Past Med/Surg History Problem List (Updated 05/18/25 @ 22:31 by Magdalene Long PA-C) Osteomyelitis (Acute) Cellulitis (Acute) Toe infection (Acute) MRSA cellulitis left labial abscess 09/22/23 Vulvar abscess Depression Acute UTI (urinary tract infection) (Acute) Sepsis UTI (urinary tract infection) Pelvic pain Encounter for routine gynecological examination with Papanicolaou smear of cervix Postmenopausal estrogen deficiency Medical History Urinary urgency Sleep apnea Sensorineural hearing loss of both ears Prediabetes Obesity Mixed hyperlipidemia Hypertension Hemorrhoids Gastroparesis Esophageal reflux Asthma Allergic rhinitis Surgical History Hx of tubal ligation History of gastric surgery Hx of cholecystectomy Family History Mother Myelogenous leukemia Son Thyroid cancer Father Lung cancer Myocardial infarction Prostate cancer Brother No problems noted. Aunt Breast cancer Denies family history of Ovarian cancer Colorectal cancer Social History Smoking Status: Former smoker Do You Dip or Chew Tobacco: No; Hx Alcohol Use: No Hx Substance Use: No Preferred Language: Moldovan Communication Ability: Effective Dog Trainer Required: No Beliefs That Will Affect Care: None Current Living Situation: Spouse Feels Safe at Home: Yes Assistive Devices: Glasses Allergies Allergies Allergy/AdvReac Type Severity Reaction Status Date / Time amoxicillin [From Augmentin] Allergy Verified 11/13/24 16:04 clavulanic acid Allergy Verified 11/13/24 16:04 [From Augmentin] nicotine [From Nicoderm CQ] Allergy Verified 11/13/24 16:04 sulfamethoxazole Allergy Verified 11/13/24 16:04 [From Septra] trimethoprim [From Septra] Allergy Verified 11/13/24 16:04 Home Meds Home Medications Medication Instructions Recorded Confirmed cholecalciferol (vitamin D3) 50 0 mcg PO DAILY 03/29/20 11/13/24 mcg (2,000 unit) capsule fluticasone propionate 50 See Rx Instructions .Route .COMPLEX 03/29/20 11/13/24 mcg/actuation nasal spray,suspension multivitamin (Daily Multi-Vitamin 1 tab PO DAILY 03/29/20 11/13/24 tablet) venlafaxine 37.5 mg 37.5 mg PO DAILY 03/29/20 11/13/24 capsule,extended release 24 hr Tylenol See Rx Instructions .Route 08/29/23 11/13/24 .COMPLEX PRN pain/fever ibuprofen See Rx Instructions .Route 08/29/23 11/13/24 .COMPLEX PRN pain/fever atorvastatin 10 mg tablet 10 mg PO DAILY 12/12/23 11/13/24 Previous Rx's Medication Instructions Recorded nystatin-triamcinolone 100,000 1 applic topical BID vulvitis #15 12/12/23 unit/gram-0.1 % topical ointment grams nitrofurantoin macrocrystal 100 mg 100 mg PO BID #10 caps 11/14/24 capsule Results & Data (ED) Vital Signs Vital Signs - 24 hr 05/18/25 14:51 05/18/25 14:51 Temperature 36.6 C Temperature Source Temporal Artery Scan Pulse Rate 83 Respiratory Rate 18 18 Blood Pressure 145/57 H Blood Pressure Mean 86 Pulse Oximetry 99 Sepsis Recent Fever Within 48 Hours No Sepsis New/Unexplained Change in Mental Status N/A Sepsis Action Taken by Nursing No Action Required Laboratory Data 05/18/25 15:35 05/18/25 15:35 Lab Results 05/18/25 Range/Units 15:35 WBC 11.14 H (4.8-10.8) K/ul RBC 4.17 L (4.20-5.40) M/uL Hgb 12.4 (12.0-16.0) g/dL Hct 37.9 (37.0-47.0) % MCV 90.9 (80.0-100.0) fL MCH 29.7 (25.0-34.0) pg MCHC 32.7 (32.0-36.0) g/dL RDW Std Deviation 41.5 (36.4-46.3) fL RDW Coeff of Jovanny 12.5 (11.5-14.5) % Plt Count 491 H (130-400) K/uL MPV 9.0 L (9.4-12.4) fL Immature Gran % (Auto) 0.2 % Neut % (Auto) 70.7 % Lymph % (Auto) 20.0 % King % (Auto) 7.1 % Eos % (Auto) 1.7 % Baso % (Auto) 0.3 % Neut # (Auto) 7.88 H (1.40-6.50) K/uL Lymph # (Auto) 2.23 (1.20-3.40) K/uL King # (Auto) 0.79 H (0.11-0.59) K/uL Eos # (Auto) 0.19 (0.00-0.50) K/uL Baso # (Auto) 0.03 (0.00-0.20) K/uL Immature Gran # (Auto) 0.02 (0.01-0.20) K/uL ESR 40 H (0-30) mm/hr PT 10.5 (9.0-12.0) Seconds INR 1.0 (0.9-1.1) APTT 28 (21-31) Seconds PTT Ratio 1.0 Sodium 138 (136-145) mmol/L Potassium 3.9 (3.5-5.1) mmol/L Chloride 102 (98-107) mmol/L Carbon Dioxide 30 (21-32) mmol/L Anion Gap 6 (3-11) BUN 9 (6-23) mg/dl Creatinine 0.69 (0.6-1.2) mg/dl Est Cr Clr Drug Dosing 63.6 ml/min eGFR 91.58 BUN/Creatinine Ratio 13.0 (10-20) Glucose 96 (70-99(Fasting)) mg/dl Calcium 9.2 (8.6-10.3) mg/dl Total Bilirubin 0.4 (0.2-1.0) mg/dl AST 16 (13-39) U/L ALT 10 (7-52) U/L Alkaline Phosphatase 97 (34-104) U/L C-Reactive Protein < 0.50 (0-0.5) mg/dl Total Protein 7.8 (6.0-8.3) gm/dl Albumin 4.3 (3.4-5.0) gm/dl Globulin 3.5 (2.5-4.0) gm/dl Albumin/Globulin Ratio 1.2 (0.9-2) Procalcitonin < 0.02 (0-0.5) ng/ml Administered Medications Discontinued Medications Sodium Chloride (Nss) 1,000 mls @ 999 mls/hr IV .Q1H1M ONE Stop: 05/18/25 16:18 Last Infusion: 05/18/25 19:18 Dose: Infused Documented By: Admin: 05/18/25 16:12 Dose: 999 mls/hr Documented By: SHINE Ceftriaxone Sodium (Rocephin) 1,000 mg in 50 mls @ 100 mls/hr IV NOW STA Stop: 05/18/25 15:51 Last Infusion: 05/18/25 17:03 Dose: Infused Documented By: Admin: 05/18/25 16:12 Dose: 100 mls/hr Documented By: SHINE Vancomycin HCl 1,750 mg/ (Sodium Chloride) 535 mls @ 200 mls/hr IV NOW ONE Stop: 05/18/25 18:02 Last Infusion: 05/18/25 19:49 Dose: Infused Documented By: Admin: 05/18/25 17:03 Dose: 200 mls/hr Documented By: GABRIELA Acetaminophen (Ofirmev) 1,000 mg in 100 mls @ 400 mls/hr IV NOW STA Stop: 05/18/25 15:37 Last Infusion: 05/18/25 17:03 Dose: Infused Documented By: Admin: 05/18/25 16:12 Dose: 400 mls/hr Documented By: SHINE Imaging Data Radiologist's Impression: Foot X-Ray 05/18/25 15:18 XR foot RT min 3V routine CLINICAL HISTORY: swelling, pain, pus from 2nd toe COMPARISON: None FINDINGS: Alignment of the right foot is anatomic. Tarsometatarsal joints are intact. No acute fractures are present. 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 There is second toe soft tissue swelling. No radiopaque foreign bodies are present. There is equivocal subtle erosion of the distal tuft of the distal phalanx of the right second toe. IMPRESSION: Right second toe soft tissue swelling. Equivocal erosion of the distal tuft of the distal phalanx of the right second toe. Acute osteomyelitis cannot be excluded. ACT 112: Negative or not required by law. Electronically signed by: Christopher Dobbins M.D. 05/18/2025 4:10 PM Discharge Plan Visit Data Chief Complaint: Bite Stated Complaint: BUG BITE ON TOE, SWELLING ED Provider: Rakesh Miranda ED Midlevel Provider: Magdalene Long Discharge Problem: Toe infection, Cellulitis, Osteomyelitis Patient Disposition: Admitted As Inpatient Condition: Good Discharge Instructions Interventions: ED Discharge Assessment Last Done: 05/18/25 20:20
[2025-05-18 15:49] LABS: Hematocrit (blood only) 37.9 % (37.0-47.0); Hemoglobin 12.4 g/dL (12.0-16.0); Immature Granulocytes # (auto) 0.02 K/uL (0.01-0.20); Immature Granulocytes % (auto) 0.2 %; Mean Corpuscular Hemoglobin 29.7 pg (25.0-34.0); Mean Corpuscular Volume 90.9 fL (80.0-100.0); Platelet Count 491 K/uL (130-400); RDW Standard Deviation 41.5 fL (36.4-46.3); Red Blood Count 4.17 M/uL (4.20-5.40); White Blood Count 11.14 K/ul (4.8-10.8)
[2025-05-18 16:08] LABS: Alanine Aminotransferase 10 U/L (7-52); Albumin Globulin Ratio 1.2 (0.9-2); Albumin Level 4.3 gm/dl (3.4-5.0); Alkaline Phosphatase 97 U/L (34-104); Anion Gap 6 (3-11); Bilirubin,Total 0.4 mg/dl (0.2-1.0); Blood Urea Nitrogen 9 mg/dl (6-23); Calcium 9.2 mg/dl (8.6-10.3); Carbon Dioxide 30 mmol/L (21-32); Chloride 102 mmol/L (98-107); Creatinine Clr Calc Pharmacy 63.6 ml/min; Globulin 3.5 gm/dl (2.5-4.0); Glucose 96 mg/dl (70-99(Fasting)); Potassium 3.9 mmol/L (3.5-5.1); Sodium 138 mmol/L (136-145); Total Protein 7.8 gm/dl (6.0-8.3)
--- NOTE | 2025-05-18 16:11 | XRay Report ---
XR foot RT min 3V routine CLINICAL HISTORY: swelling, pain, pus from 2nd toe COMPARISON: None FINDINGS: Alignment of the right foot is anatomic. Tarsometatarsal joints are intact. No acute fract ures are present. 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 Ther e is second toe soft tissue swelling. No radiopaque foreign bodies are present. There is equivocal rabago btle erosion of the distal tuft of the distal phalanx of the right second toe. IMPRESSION: Right second toe soft tissue swelling. Equivocal erosion of the distal tuft of the distal phalanx of the right second toe. Acute osteomyelitis cannot be excluded. ACT 112: Negative or not required by law. Electronically signed by: Christopher Dobbins M.D. 05/18/2025 4:10 PM
[2025-05-18] MEDS: cefTRIAXone SODIUM 1,000 MG/50 ML BAG IV STA (16:12)
[2025-05-18] MEDS: SODIUM CHLORIDE 0.9% 1,000 ML IV ONE (16:12)
[2025-05-18] MEDS: ACETAMINOPHEN 1,000 MG/100 ML VIAL IV STA (16:12)
[2025-05-18 16:35] LABS: INR 1.0 (0.9-1.1); Partial Thromboplastin Time 28 Seconds (21-31); Prothrombin Time 10.5 Seconds (9.0-12.0)
[2025-05-18] MEDS: VANCOMYCIN HCL 1,750 MG in SODIUM CHLORIDE 0.9% 500 ML IV ONE (17:03)
[2025-05-18] MEDS ORDERED: MoRPHine SULFATE 2 MG/ML CARP IV PRN (17:15)
[2025-05-18] MEDS ORDERED: ONDANSETRON INJ 2 MG/ML 2 ML VIAL IV PRN (17:15)
--- NOTE | 2025-05-18 17:33 | History & Physical Report ---
Date of Service May 18, 2025 Assessment & Plan (1) Toe infection: Plan: -right 2nd toe with erythema, swelling, and purulent discharge -rocephin/vancomycin started -f/u wound cultures -podiatry consulted (2) Mixed hyperlipidemia: Plan: -atorvastatin (3) Depression: Plan: -venlafaxine Plan Heparin SQ for DVT px History of Present Illness Chief Complaint: 2nd toe swelling and discharge Primary Care Provider: Christine Holt Pt is a 75 y/o female with pmh of psoriasis who presents with 2 to 3 day of redness, swelling and drainage from her right 2nd toe. Pt states she may have had a "bug bite." She attempted to drain her toe at home by using a needle. Here in the ER there was purulent drainage noted by the ER. Her WBC was 11k. She had an X-ray of the foot which showed erosion of the distal tuft of the distasl phalanx of right second toe, osteomyelitis cannot be ruled out. Pt was started on rocephin and vancomycin in the ER and will be admitted for further treatment and evaluation by podiatry. Allergies Allergy/AdvReac Type Severity Reaction Status Date / Time amoxicillin [From Augmentin] Allergy Verified 11/13/24 16:04 clavulanic acid Allergy Verified 11/13/24 16:04 [From Augmentin] nicotine [From Nicoderm CQ] Allergy Verified 11/13/24 16:04 sulfamethoxazole Allergy Verified 11/13/24 16:04 [From Septra] trimethoprim [From Septra] Allergy Verified 11/13/24 16:04 Home Medications Medication Instructions Recorded Confirmed Type cholecalciferol (vitamin D3) 50 0 mcg PO DAILY 03/29/20 11/13/24 History mcg (2,000 unit) capsule fluticasone propionate 50 See Rx Instructions .Route .COMPLEX 03/29/20 11/13/24 History mcg/actuation nasal spray,suspension multivitamin (Daily Multi-Vitamin 1 tab PO DAILY 03/29/20 11/13/24 History tablet) venlafaxine 37.5 mg 37.5 mg PO DAILY 03/29/20 11/13/24 History capsule,extended release 24 hr Tylenol See Rx Instructions .Route 08/29/23 11/13/24 History .COMPLEX PRN pain/fever ibuprofen See Rx Instructions .Route 08/29/23 11/13/24 History .COMPLEX PRN pain/fever atorvastatin 10 mg tablet 10 mg PO DAILY 12/12/23 11/13/24 History nystatin-triamcinolone 100,000 1 applic topical BID vulvitis #15 12/12/23 11/13/24 Rx unit/gram-0.1 % topical ointment grams nitrofurantoin macrocrystal 100 mg 100 mg PO BID #10 caps 11/14/24 Rx capsule Past Med/Surg History Problem List (Updated 05/18/25 @ 17:30 by Vega March MD) Toe infection MRSA cellulitis left labial abscess 09/22/23 Vulvar abscess Depression Acute UTI (urinary tract infection) (Acute) Sepsis UTI (urinary tract infection) Pelvic pain Encounter for routine gynecological examination with Papanicolaou smear of cervix Postmenopausal estrogen deficiency Medical History Urinary urgency Sleep apnea Sensorineural hearing loss of both ears Prediabetes Obesity Mixed hyperlipidemia Hypertension Hemorrhoids Gastroparesis Esophageal reflux Asthma Allergic rhinitis Surgical History Hx of tubal ligation History of gastric surgery Hx of cholecystectomy Family History Mother Myelogenous leukemia Son Thyroid cancer Father Lung cancer Myocardial infarction Prostate cancer Brother No problems noted. Aunt Breast cancer Denies family history of Ovarian cancer Colorectal cancer Social History Smoking Status: Former smoker Do You Dip or Chew Tobacco: No; Hx Alcohol Use: No Hx Substance Use: No Preferred Language: Vietnamese Communication Ability: Effective Helmet Binder Required: No Beliefs That Will Affect Care: None Current Living Situation: Spouse Feels Safe at Home: Yes Assistive Devices: Glasses Review of Systems Review of Systems: CONST: Negative for fever, body aches and chills. HENT: Negative for neck pain/stiffness, headache, congestion, sore throat, swelling. EYES: Negative for discharge/pain or vision changes. RESP: Negative for cough/hemoptysis and shortness of breath. CV: Negative chest pain, difficulty breathing, palpitations. ABD: Negative pain, nausea, vomiting. : Negative increase frequency, dysuria, blood in urine or stool. MUSC: Negative for muscle aches, edema. SKIN: Negative rash, lesions/sores. Right 2nd toe redness and swelling NEURO: Negative headache, dizziness, weakness. Physical Exam Physical Exam: GENERAL APPEARANCE NAD, activity normal for age, well developed/ well nourished, no cyanosis, pallor, or diaphoresis. EYES lids/conjunctiva normal. EARS/NOSE/THROAT Mucous membranes moist, nares normal, lips/teeth normal uvula midline without oral pharyngeal erythema, exudate or swelling TMs normal bilaterally. No lymphangitis/lymphedema. HEAD/NECK normocephalic atraumatic, no facial trauma, neck is supple. RESPIRATORY respiratory effort normal, speaks in full sentences, no tripod position, no accessory muscle use. Lungs clear to auscultation without rhonchi, wheezes, rales CARDIAC Regular rate and rhythm, no edema. ABDOMINAL Soft, ND/NT. No evidence of fluid wave. No pulsatile masses on exam, rebound tenderness, Wayne sign or pain over Mcburney's point. MUSCLES/EXTREMITIES No abnormal range of motion, +swelling,erythema, and purulent drainage of right 2nd toe SKIN Warm, pink and dry. No rashes, dermatoses, petechiae or lesions. NEUROLOGICAL Speech is clear and appropriate. Normal level of consciousness. Gait and coordination are normal. 5/5 strength in all extremities. PSYCH Normal mood and affect. Judgement/competence is appropriate Results & Data Results & Data Vital Signs (Past 12 Hours) Vital Signs Temp Pulse Resp BP Pulse Ox 05/18/25 14:51 18 05/18/25 14:51 36.6 C 83 18 145/57 H 99 PG Care Time/CCT Total # of Minutes Spent Total Time Spent with Patient: Total time spent is greater than 50% in coordination of care (as documented) at patient's floor/unit and/or counseling patient: Coding Level of Care Code 28769 INT INP/OBS CARE 2/55MIN Diagnoses Toe infection L08.9 Mixed hyperlipidemia E78.2 Depression F32.A
[2025-05-18] MEDS: HEPARIN SOD 5,000 UNIT/0.5 ML VIAL SQ SCH (22:37)
[2025-05-19] MEDS: VANCOMYCIN HCL 1,000 MG in SODIUM CHLORIDE 0.9% 250 ML IV SCH (05:45)
[2025-05-19 06:38] LABS: Hematocrit (blood only) 34.4 % (37.0-47.0); Hemoglobin 11.4 g/dL (12.0-16.0); Mean Corpuscular Hemoglobin 30.3 pg (25.0-34.0); Mean Corpuscular Volume 91.5 fL (80.0-100.0); Platelet Count 413 K/uL (130-400); RDW Standard Deviation 41.2 fL (36.4-46.3); Red Blood Count 3.76 M/uL (4.20-5.40); White Blood Count 9.19 K/ul (4.8-10.8)
[2025-05-19 06:57] LABS: Anion Gap 6.0 (3-11); Blood Urea Nitrogen 8.0 mg/dl (6-23); Calcium 8.3 mg/dl (8.6-10.3); Carbon Dioxide 28.0 mmol/L (21-32); Chloride 107.0 mmol/L (98-107); Creatinine Clr Calc Pharmacy 70.1 ml/min; Glucose 96.0 mg/dl (70-99(Fasting)); Potassium 3.8 mmol/L (3.5-5.1); Sodium 141.0 mmol/L (136-145)
--- NOTE | 2025-05-19 07:42 | Pharmacy Report ---
Pharmacy PK ABX Note - Date of Service May 19, 2025 - Assessment and Plan Assessment 75 year old F receiving empiric vancomycin and ceftriaxone for treatment of right second toe infection w/ erythema, swelling, and purulent discharge. Pertinent microbiologic data includes: blood cultures x 2 and toe culture pending. Day # 2 of antimicrobial therapy. Plan Vancomycin * Loading dose: 1750 mg IV x 1 * Maintenance dose: 1000 mg IV every 12 hours * Regimen is predicted to achieve target AUC/ESTEPHANIE of 400-600 mg/L.hr * Trough level ordered for: 05/20/25 Pharmacy will continue to follow and will adjust dose/frequency as necessary. Thank you. Pharmacy has transitioned to AUC monitoring for vancomycin. AUC/ESTEPHANIE is the preferred PK/PD target and is associated with decreased risk of nephrotoxicity compared to traditional trough targets.
[2025-05-19] MEDS: MULTIVITAMIN TAB PO SCH (09:10)
[2025-05-19] MEDS: ATORVASTATIN 10 MG TAB PO SCH (09:10)
[2025-05-19] MEDS: VENLAFAXINE HCL XR 37.5 MG CAPXR PO SCH (09:11)
--- NOTE | 2025-05-19 09:36 | Infectious Disease Consult ---
Date of Consultation May 19, 2025 Assessment & Plan (1) Toe infection: Plan Problems: #R second toe infection Micro: 05/18 BCx x2: pending 05.18 R second toe cx: Staph aureus Abx: Vanc 05/18 - present Ceftriaxone 05/18 - present 75 yo F with history of psoriasis who presented on 05/18 with 2-3 days of erythema, swelling, and drainage from her R 2nd toe. She denies known preceding trauma/injury to the area, and wonders if she got an insect bite on her toe. She attempted to drain her toe at home using a needle. On presentation, pt was afebrile, VSS. Was noted on exam to have a pinpoint open wound with purulent drainage. Labs showed WBC 11.14, plt 491, ESR 40, normal CRP. R foot XR with R second toe soft tissue swelling, equivocal erosion of distal tuft of distal phalanx of R second toe, acute osteomyelitis cannot be excluded. She was started on vanc, ceftriaxone. A R second toe wound culture is growing Staph aureus, sensitivities pending. BCx pending. Discussion: With the acute onset infection without chronic ulceration, no history of diabetes, and the area of concern on the XR (distal tuft of distal phalanx) which does not seem to correlate with the area of infection on exam (seems to be around proximal phalanx), my suspicion for underlying osteomyelitis is lower. Recommendations: - Follow-up podiatry recs - Could consider MRI for further evaluation - Discontinued ceftriaxone. Continue vanc - Follow-up Staph aureus sensitivities Will continue to follow Consultation Information Consultation was provided via telemedicine using two-way real-time interactive telecommunication between the patient and the telemedicine provider. For the duration of the visit, the provider was performing the assessment from a different facility than the patient. This includesuse of bluetooth stethoscope forauscultationperformed by the telepresenter that the telemedicine provider can hear if described in the physical exam. Collection Systems Administrator contact information: Please call [facility] [phone]. (Phone Number For Physician Use Only) After establishing a telemedicine visit, patient was: Patient was verified with two unique identifiers, Patient/authorized rep acknowledged consent and understanding and Gave permission to continue telehealth session Time Spent with Patient: Initial => 55 min History of Present Illness Reason for Consultation: R 2nd toe infection Attending Physician: Vega March MD History of Present Illness 75 yo F with history of psoriasis who presented on 05/18 with 2-3 days of erythema, swelling, and drainage from her R 2nd toe. She denies known preceding trauma/injury to the area, and wonders if she got an insect bite on her toe. She attempted to drain her toe at home using a needle. On presentation, pt was afebrile, VSS. Was noted on exam to have a pinpoint open wound with purulent drainage. Labs showed WBC 11.14, plt 491, ESR 40, normal CRP. R foot XR with R second toe soft tissue swelling, equivocal erosion of distal tuft of distal phalanx of R second toe, acute osteomyelitis cannot be excluded. She was started on vanc, ceftriaxone. A R second toe wound culture is growing Staph aureus, sensitivities pending. BCx pending. Allergies Allergy/AdvReac Type Severity Reaction Status Date / Time amoxicillin [From Augmentin] Allergy Verified 11/13/24 16:04 clavulanic acid Allergy Verified 11/13/24 16:04 [From Augmentin] nicotine [From Nicoderm CQ] Allergy Verified 11/13/24 16:04 sulfamethoxazole Allergy Verified 11/13/24 16:04 [From Septra] trimethoprim [From Septra] Allergy Verified 11/13/24 16:04 Home Medications Medication Instructions Recorded Confirmed Type cholecalciferol (vitamin D3) 50 0 mcg PO DAILY 03/29/20 11/13/24 History mcg (2,000 unit) capsule fluticasone propionate 50 See Rx Instructions .Route .COMPLEX 03/29/20 11/13/24 History mcg/actuation nasal spray,suspension multivitamin (Daily Multi-Vitamin 1 tab PO DAILY 03/29/20 11/13/24 History tablet) venlafaxine 37.5 mg 37.5 mg PO DAILY 03/29/20 11/13/24 History capsule,extended release 24 hr Tylenol See Rx Instructions .Route 08/29/23 11/13/24 History .COMPLEX PRN pain/fever ibuprofen See Rx Instructions .Route 08/29/23 11/13/24 History .COMPLEX PRN pain/fever atorvastatin 10 mg tablet 10 mg PO DAILY 12/12/23 11/13/24 History nystatin-triamcinolone 100,000 1 applic topical BID vulvitis #15 07/10/24 06/12/25 Rx unit/gram-0.1 % topical ointment grams nitrofurantoin macrocrystal 100 mg 100 mg PO BID #10 caps 11/14/24 Rx capsule Patient History Medical History Urinary urgency Sleep apnea Sensorineural hearing loss of both ears Prediabetes Obesity Mixed hyperlipidemia Hypertension Hemorrhoids Gastroparesis Esophageal reflux Asthma Allergic rhinitis Surgical History Hx of tubal ligation History of gastric surgery Hx of cholecystectomy Family History Mother Myelogenous leukemia Son Thyroid cancer Father Lung cancer Myocardial infarction Prostate cancer Brother No problems noted. Aunt Breast cancer Denies family history of Ovarian cancer Colorectal cancer Social History Smoking Status: Former smoker Tobacco Type: Cigarettes Second Hand Exposure: Yes; Do You Dip or Chew Tobacco: No; Hx Alcohol Use: Yes Hx Substance Use: No Preferred Language: Azeri Communication Ability: Effective Bullet Swaging Machine Operator Required: No Beliefs That Will Affect Care: None Current Living Situation: Spouse Feels Safe at Home: Yes Assistive Devices: Hospital Bed Review of System A complete ROS was performed and is negative except as mentioned in the HPI. Physical Exam Physical Exam: GEN: Well-appearing, in NAD. HEENT: Normocephalic, atraumatic. RESP: No increased work of breathing SKIN: R second toe with what appears to be blister with purulence at base of toe, with surrounding erythema extending proximally onto dorsal distal surface of foot. Chronic dry rash on R dorsal foot/ankle. NEURO: Alert and oriented. Answers all questions appropriately. Speech not slurred. PSYCH: Normal mood, affect appropriate. Results & Data Vital Signs (Past 12 Hours) Vital Signs Temp Pulse Resp BP Pulse Ox O2 Del Method 05/19/25 07:34 37.2 C 75 16 130/81 98 Room Air 05/18/25 22:36 36.8 C 75 16 131/77 96 Room Air Laboratory Results Short CBC 05/18/25 05/19/25 Range/Units 15:35 06:19 WBC 11.14 H 9.19 (4.8-10.8) K/ul Hgb 12.4 11.4 L (12.0-16.0) g/dL Hct 37.9 34.4 L (37.0-47.0) % Plt Count 491 H 413 H (130-400) K/uL BMP 05/18/25 05/19/25 15:35 06:19 Sodium 138 141 Potassium 3.9 3.8 Chloride 102 107 Carbon Dioxide 30 28 BUN 9 8 Creatinine 0.69 0.63 Glucose 96 96 Calcium 9.2 8.3 L Liver Function 05/18/25 Range/Units 15:35 Total Bilirubin 0.4 (0.2-1.0) mg/dl AST 16 (13-39) U/L ALT 10 (7-52) U/L Alkaline Phosphatase 97 (34-104) U/L Albumin 4.3 (3.4-5.0) gm/dl Diagnostic Findings Foot X-Ray 05/18/25 15:18 XR foot RT min 3V routine CLINICAL HISTORY: swelling, pain, pus from 2nd toe COMPARISON: None FINDINGS: Alignment of the right foot is anatomic. Tarsometatarsal joints are intact. No acute fractures are present. 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 There is second toe soft tissue swelling. No radiopaque foreign bodies are present. There is equivocal subtle erosion of the distal tuft of the distal phalanx of the right second toe. IMPRESSION: Right second toe soft tissue swelling. Equivocal erosion of the distal tuft of the distal phalanx of the right second toe. Acute osteomyelitis cannot be excluded. ACT 112: Negative or not required by law. Electronically signed by: Christopher Dobbins M.D. 05/18/2025 4:10 PM
--- NOTE | 2025-05-19 10:03 | Hospitalist Progress Note ---
Date of Service May 19, 2025 Assessment & Plan (1) Toe infection: Plan: -right 2nd toe with erythema, swelling, and purulent discharge -rocephin/vancomycin started -f/u wound cultures -podiatry consulted -ID consulted (2) Mixed hyperlipidemia: Plan: -atorvastatin (3) Depression: Plan: -venlafaxine Plan Heparin SQ for DVT px Admission and Anticipated Discharge Date Admission Date: May 18, 2025 Subjective No events overnight. Pt resting comfortably in bed. Review of Systems Review of Systems: CONST: Negative for fever, body aches and chills. HENT: Negative for neck pain/stiffness, headache, congestion, sore throat, swelling. EYES: Negative for discharge/pain or vision changes. RESP: Negative for cough/hemoptysis and shortness of breath. CV: Negative chest pain, difficulty breathing, palpitations. ABD: Negative pain, nausea, vomiting. : Negative increase frequency, dysuria, blood in urine or stool. MUSC: Negative for muscle aches, edema. SKIN: Negative rash, lesions/sores. Right 2nd toe redness and swelling NEURO: Negative headache, dizziness, weakness. Physical Exam Physical Exam: GENERAL APPEARANCE NAD, activity normal for age, well developed/ well nourished, no cyanosis, pallor, or diaphoresis. EYES lids/conjunctiva normal. EARS/NOSE/THROAT Mucous membranes moist, nares normal, lips/teeth normal uvula midline without oral pharyngeal erythema, exudate or swelling TMs normal bilaterally. No lymphangitis/lymphedema. HEAD/NECK normocephalic atraumatic, no facial trauma, neck is supple. RESPIRATORY respiratory effort normal, speaks in full sentences, no tripod position, no accessory muscle use. Lungs clear to auscultation without rhonchi, wheezes, rales CARDIAC Regular rate and rhythm, no edema. ABDOMINAL Soft, ND/NT. No evidence of fluid wave. No pulsatile masses on exam, rebound tenderness, Wayne sign or pain over Mcburney's point. MUSCLES/EXTREMITIES No abnormal range of motion, +swelling,erythema, and purulent drainage of right 2nd toe SKIN Warm, pink and dry. No rashes, dermatoses, petechiae or lesions. NEUROLOGICAL Speech is clear and appropriate. Normal level of consciousness. Gait and coordination are normal. 5/5 strength in all extremities. PSYCH Normal mood and affect. Judgement/competence is appropriate Results & Data Results & Data Vital Signs (Past 12 Hours) Vital Signs Temp Pulse Resp BP Pulse Ox O2 Del Method 05/19/25 07:34 37.2 C 75 16 130/81 98 Room Air 05/18/25 22:36 36.8 C 75 16 131/77 96 Room Air PG Care Time/CCT Total # of Minutes Spent Total Time Spent with Patient: Total time spent is greater than 50% in coordination of care (as documented) at patient's floor/unit and/or counseling patient: Coding Level of Care Code 13733 SUB INP/OBS CARE 2/35MIN Diagnoses Toe infection L08.9 Mixed hyperlipidemia E78.2 Depression F32.A
[2025-05-19] MEDS: ACETAMINOPHEN 325 MG TAB PO PRN (12:13)
--- NOTE | 2025-05-19 13:05 | Podiatry Consultation ---
Date of Consultation May 19, 2025 Assessment & Plan (1) Cellulitis: (2) MRSA cellulitis: (3) Abscess of toe of right foot: Plan Abscess/wound right second toe associated cellulitis: - Bedside I&D right second toe - Deep culture of drainage collected and sent. - Wound culture right second toe 05/18/2025: Preliminary Staph aureus - Blood culture 05/18/2025: Pending - Continues IV Rocephin and vancomycin - Order: Postop shoe to be worn at all times when ambulating. - Plain film radiographs reviewed with concern for possible osteomyelitis at the distal aspect of the distal phalanx of the right second toe. On clinical evaluation the overlying skin is intact in this location and no clinical concern for osteomyelitis of the distal phalanx. No indication for more advanced imaging of the right foot at this time. Will have patient n.p.o. at midnight tonight for possible OR based I&D of the right foot 05/20/2025. Plan to reevaluate patient's foot over the lunch hour on 05/20 to determine need for OR versus repeat bedside I&D. Thank you for consulting podiatry to aid in the care of this patient. Will continue to follow while she remains in house and recommend following up within 1 week of discharge in the podiatry clinic. History of Present Illness Reason for Consultation: Right second toe wound/abscess Attending Physician: Vega March MD History of Present Illness 75-year-old female with significant past medical history for psoriasis which affects the lower extremities with infection to the right second toe which she first noticed over the weekend. She presented to [facility] 05/18/2025. Wound culture was collected and she was initiated on IV vancomycin and Rocephin and admitted for further treatment relation. Podiatry consulted to evaluate abscess/ulceration with associated cellulitis to the dorsal aspect of the right second toe. Patient reports reduced pain since the time of admission however she does get increased pain with weightbearing. Has been weightbearing in stocking feet. Denies injury to the right second toe. She feels that she may have had a spider bite or something else that caused an abrasion to the toe with subsequent infection. She does admit to picking at the toe to try to remove scab which she feels might have made it worse. Denies nausea, vomiting, fever, chills. Allergies Allergy/AdvReac Type Severity Reaction Status Date / Time amoxicillin [From Augmentin] Allergy Verified 11/13/24 16:04 clavulanic acid Allergy Verified 11/13/24 16:04 [From Augmentin] nicotine [From Nicoderm CQ] Allergy Verified 11/13/24 16:04 sulfamethoxazole Allergy Verified 11/13/24 16:04 [From Septra] trimethoprim [From Septra] Allergy Verified 11/13/24 16:04 Home Medications Medication Instructions Recorded Confirmed Type cholecalciferol (vitamin D3) 50 0 mcg PO DAILY 03/29/20 11/13/24 History mcg (2,000 unit) capsule fluticasone propionate 50 See Rx Instructions .Route .COMPLEX 03/29/20 11/13/24 History mcg/actuation nasal spray,suspension multivitamin (Daily Multi-Vitamin 1 tab PO DAILY 03/29/20 11/13/24 History tablet) venlafaxine 37.5 mg 37.5 mg PO DAILY 03/29/20 11/13/24 History capsule,extended release 24 hr Tylenol See Rx Instructions .Route 08/29/23 11/13/24 History .COMPLEX PRN pain/fever ibuprofen See Rx Instructions .Route 08/29/23 11/13/24 History .COMPLEX PRN pain/fever atorvastatin 10 mg tablet 10 mg PO DAILY 12/12/23 11/13/24 History nystatin-triamcinolone 100,000 1 applic topical BID vulvitis #15 12/12/23 11/13/24 Rx unit/gram-0.1 % topical ointment grams nitrofurantoin macrocrystal 100 mg 100 mg PO BID #10 caps 11/14/24 Rx capsule Patient History Medical History Urinary urgency Sleep apnea Sensorineural hearing loss of both ears Prediabetes Obesity Mixed hyperlipidemia Hypertension Hemorrhoids Gastroparesis Esophageal reflux Asthma Allergic rhinitis Surgical History Hx of tubal ligation History of gastric surgery Hx of cholecystectomy Family History Mother Myelogenous leukemia Son Thyroid cancer Father Lung cancer Myocardial infarction Prostate cancer Brother No problems noted. Aunt Breast cancer Denies family history of Ovarian cancer Colorectal cancer Social History Smoking Status: Former smoker Tobacco Type: Cigarettes Second Hand Exposure: Yes; Do You Dip or Chew Tobacco: No; Hx Alcohol Use: Yes Hx Substance Use: No Preferred Language: Filipino Communication Ability: Effective Domestic Freight Forwarder Required: No Beliefs That Will Affect Care: None Current Living Situation: Spouse Feels Safe at Home: Yes Assistive Devices: None Review of Systems Review of Systems: Denies nausea, vomiting, fever, chills, shortness of breath, chest pain. Reports moderate to severe pain right foot specifically the second toe. Increased pain with weightbearing in the right foot. Physical Exam Physical Exam: Const: Appears well developed and well nourished. No signs of acute distress present. CV: Extremities: No cyanosis or edema. Capillary refill time is less than 2 seconds all digits of the bilateral foot. Posterior tibial and dorsalis pedis pulses are palpable bilateral. Lymph: No palpable or visible regional lymphadenopathy. Skin: No scars, rashes, lesions or ecchymosis. Neuro: Sensation intact to light touch in all areas of the foot and ankle. Psych: Mood/Affect: Mood is normal. Affect is normal. Cognition: Orientation is intact to person, place and time. Focused lower extremity musculoskeletal exam: Leg: No pain with compression of the calf muscle. Ankles: Normal to inspection and palpation. No swelling bilaterally. No tenderness bilaterally. Motor strength is intact. Range of motion pain-free and unlimited. Feet: Normal to inspection and palpation. No obvious instability. Motor strength is intact. Range of motion pain-free and unlimited. Superficial and deep abscess right second toe overlying the proximal phalanx. Superficial abscess is incised, drained and deroofed. There is a focal central wound with deep extension and purulent to caseous drainage is expressed on compression. This is incised and drained and flushed with normal sterile saline until it runs clean. space quickly refilling with inflammatory serous fluid. Tunnel is too small to drain. Results & Data Vital Signs (Past 12 Hours) Vital Signs Temp Pulse Resp BP Pulse Ox O2 Del Method 05/19/25 07:34 37.2 C 75 16 130/81 98 Room Air Laboratory Results XR foot RT min 3V routine - 05/18/2025 CLINICAL HISTORY: swelling, pain, pus from 2nd toe COMPARISON: None FINDINGS: Alignment of the right foot is anatomic. Tarsometatarsal joints are intact. No acute fractures are present. 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 There is second toe soft tissue swelling. No radiopaque foreign bodies are present. There is equivocal subtle erosion of the distal tuft of the distal phalanx of the right second toe. IMPRESSION: Right second toe soft tissue swelling. Equivocal erosion of the distal tuft of the distal phalanx of the right second toe. Acute osteomyelitis cannot be excluded. Diagnostic Findings WBC 9.19 ESR 40 CRP less than 0.5 Procalcitonin less than 0.02 PG Care Time/CCT Total # of Minutes Spent Total Time Spent with Patient: Total time spent is greater than 50% in coordination of care (as documented) at patient's floor/unit and/or counseling patient: Coding Level of Care Code 25808 INT INP/OBS CARE 2/55MIN Diagnoses Cellulitis L03.90 MRSA cellulitis L03.90; B95.62 Abscess of toe of right foot L02.611
[2025-05-19] MEDS ORDERED: cefTRIAXone SODIUM 1,000 MG/50 ML BAG IV SCH (16:00)
[2025-05-20] MEDS: VANCOMYCIN LEVEL ONE (05:40)
[2025-05-20 05:42] LABS: Hematocrit (blood only) 35.7 % (37.0-47.0); Hemoglobin 11.8 g/dL (12.0-16.0); Mean Corpuscular Hemoglobin 29.9 pg (25.0-34.0); Mean Corpuscular Volume 90.6 fL (80.0-100.0); Platelet Count 438 K/uL (130-400); RDW Standard Deviation 40.9 fL (36.4-46.3); Red Blood Count 3.94 M/uL (4.20-5.40); White Blood Count 9.26 K/ul (4.8-10.8)
[2025-05-20 05:56] LABS: Anion Gap 6.0 (3-11); Blood Urea Nitrogen 10.0 mg/dl (6-23); Calcium 8.7 mg/dl (8.6-10.3); Carbon Dioxide 29.0 mmol/L (21-32); Chloride 104.0 mmol/L (98-107); Creatinine Clr Calc Pharmacy 55.9 ml/min; Glucose 100.0 mg/dl (70-99(Fasting)); Potassium 3.7 mmol/L (3.5-5.1); Sodium 139.0 mmol/L (136-145)
--- NOTE | 2025-05-20 09:13 | Pharmacy Report ---
Pharmacy PK ABX Note - Date of Service May 20, 2025 - Assessment and Plan Assessment 05/20: Day #3 vancomycin * The vancomycin level of 13.1 mcg/mL drawn this morning extrapolates to an AUC in target range. She is to remain on current maintenance dose of vancomycin. * Bedside I&D of right second toe done 05/19, cultures are pending. Right second toe culture from 05/18 finalized with MRSA. * Blood cultures x 2 from 05/18 are no growth to date. * ID was consulted and noted that suspicion for underlying osteomyelitis is low. 05/19: 75 year old F receiving empiric vancomycin and ceftriaxone for treatment of right second toe infection w/ erythema, swelling, and purulent discharge. Pertinent microbiologic data includes: blood cultures x 2 and toe culture pending. Plan Vancomycin * Vancomycin level drawn this morning was 13.1mcg/mL which extrapolates to an AUC of 542mg/L.hr. * Continue maintenance dose: 1000 mg IV every 12 hours * Regimen is predicted to achieve target AUC/ESTEPHANIE of 400-600 mg/L.hr * Another vancomycin trough will be ordered in the next few days or as clinically necessary. Pharmacy will continue to follow and will adjust dose/frequency as necessary. Thank you. Pharmacy has transitioned to AUC monitoring for vancomycin. AUC/ESTEPHANIE is the preferred PK/PD target and is associated with decreased risk of nephrotoxicity compared to traditional trough targets.
--- NOTE | 2025-05-20 09:44 | Infectious Disease Progress Nt ---
Date of Service May 20, 2025 Assessment & Plan (1) Abscess of toe of right foot: Plan Problems: #R second toe SSTI/abscess #Antibiotic allergies: Augmentin, TMP/SMX Micro: 05/19 R second toe cx: Staph aureus 05/18 BCx x2: NGTD 05/18 R second toe cx: MRSA (S tetra, TMP/SMX) Abx: Vanc 05/18 - present Ceftriaxone 05/18 75 yo F with history of psoriasis who presented on 05/18 with 2-3 days of erythema, swelling, and drainage from her R 2nd toe, found to have MRSA abscess. She denies known preceding trauma/injury to the area, and wonders if she got an insect bite on her toe. She attempted to drain her toe at home using a needle. On presentation, pt was afebrile, VSS. Was noted on exam to have a pinpoint open wound with purulent drainage. Labs showed WBC 11.14, plt 491, ESR 40, normal CRP. R foot XR with R second toe soft tissue swelling, equivocal erosion of distal tuft of distal phalanx of R second toe, acute osteomyelitis cannot be excluded. She was started on vanc, ceftriaxone. A R second toe wound culture MRSA. Podiatry consulted and performed bedside I&D of abscess on 05/19. No concern for osteomyelitis given the overlying skin is intact over the distal phalanx. Discussion: With the acute onset infection without chronic ulceration, no history of diabetes, and the area of concern on the XR (distal tuft of distal phalanx) which does not correlate with the area of infection on exam (seems to be around proximal phalanx), low suspicion for underlying osteomyelitis. Recommendations: - Continue vancomycin - Follow-up podiatry recs--to reassess today to determine need for OR vs repeat bedside I&D - On discharge, can transition to doxycycline 100 mg PO BID to complete a ~7 day course from last debridement Will continue to follow Admission and Anticipated Discharge Date Admission Date: May 18, 2025 Subjective This patient recommendation is based on a telemedicine consult request which was completed asynchronously through chart review and information provided by the primary physician. The patient was not seen or examined today. The evaluation is consultative in nature and all patient care and treatment decisions can either be accepted or rejected by the patient's primary hospital-based treating physician using their own independent medical judgment for their patient. Time Spent Reviewing Chart: 11 - 20 minutes Afebrile without leukocytosis Podiatry performed bedside I&D of toe abscess yesterday Results & Data Vital Signs (Past 12 Hours) Vital Signs Temp Pulse Pulse Resp BP Pulse Ox O2 Del Method 05/20/25 07:50 37.3 C 79 18 158/72 H 98 Room Air 05/20/25 07:08 37.2 C 81 14 151/76 H 95 Room Air 05/19/25 23:59 37.2 C 79 18 147/75 H 96 Room Air
--- NOTE | 2025-05-20 10:10 | Hospitalist Progress Note ---
Date of Service May 20, 2025 Assessment & Plan (1) Toe infection: Plan: -right 2nd toe with erythema, swelling, and purulent discharge -rocephin/vancomycin started -f/u wound cultures -podiatry consult appreciated -s/p bed side I&D 05/19 -awaiting OR for repeat I&D today -ID consult appreciated -con't vancomycin (2) Mixed hyperlipidemia: Plan: -atorvastatin (3) Depression: Plan: -venlafaxine Plan Heparin SQ for DVT px Admission and Anticipated Discharge Date Admission Date: May 18, 2025 Subjective No events overnight. Awaiting OR for toe repeat I&D this am. Review of Systems Review of Systems: CONST: Negative for fever, body aches and chills. HENT: Negative for neck pain/stiffness, headache, congestion, sore throat, swelling. EYES: Negative for discharge/pain or vision changes. RESP: Negative for cough/hemoptysis and shortness of breath. CV: Negative chest pain, difficulty breathing, palpitations. ABD: Negative pain, nausea, vomiting. : Negative increase frequency, dysuria, blood in urine or stool. MUSC: Negative for muscle aches, edema. SKIN: Negative rash, lesions/sores. Right 2nd toe redness and swelling NEURO: Negative headache, dizziness, weakness. Physical Exam Physical Exam: GENERAL APPEARANCE NAD, activity normal for age, well developed/ well nourished, no cyanosis, pallor, or diaphoresis. EYES lids/conjunctiva normal. EARS/NOSE/THROAT Mucous membranes moist, nares normal, lips/teeth normal uvula midline without oral pharyngeal erythema, exudate or swelling TMs normal bilaterally. No lymphangitis/lymphedema. HEAD/NECK normocephalic atraumatic, no facial trauma, neck is supple. RESPIRATORY respiratory effort normal, speaks in full sentences, no tripod position, no accessory muscle use. Lungs clear to auscultation without rhonchi, wheezes, rales CARDIAC Regular rate and rhythm, no edema. ABDOMINAL Soft, ND/NT. No evidence of fluid wave. No pulsatile masses on exam, rebound tenderness, Wayne sign or pain over Mcburney's point. MUSCLES/EXTREMITIES No abnormal range of motion, +swelling,erythema, and purulent drainage of right 2nd toe SKIN Warm, pink and dry. No rashes, dermatoses, petechiae or lesions. NEUROLOGICAL Speech is clear and appropriate. Normal level of consciousness. Gait and coordination are normal. 5/5 strength in all extremities. PSYCH Normal mood and affect. Judgement/competence is appropriate Results & Data Results & Data Vital Signs (Past 12 Hours) Vital Signs Temp Pulse Pulse Resp BP Pulse Ox O2 Del Method 05/20/25 07:50 37.3 C 79 18 158/72 H 98 Room Air 05/20/25 07:08 37.2 C 81 14 151/76 H 95 Room Air 05/19/25 23:59 37.2 C 79 18 147/75 H 96 Room Air PG Care Time/CCT Total # of Minutes Spent Total Time Spent with Patient: Total time spent is greater than 50% in coordination of care (as documented) at patient's floor/unit and/or counseling patient: Coding Level of Care Code 87012 SUB INP/OBS CARE 2/35MIN Diagnoses Toe infection L08.9 Mixed hyperlipidemia E78.2 Depression F32.A
--- NOTE | 2025-05-20 12:13 | Podiatry Progress Note ---
Date of Service May 20, 2025 Assessment & Plan (1) Cellulitis: (2) MRSA cellulitis: (3) Abscess of toe of right foot: Plan Abscess/wound right second toe associated cellulitis: - Status post bedside I&D right second toe 05/19/2025. - Deep culture right second toe 05/19/2025: Preliminary growing Staph aureus - Wound culture right second toe 05/18/2025: MRSA - Blood culture 05/18/2025: No growth 24 hours - Continues IV Rocephin and vancomycin - Continue postop shoe to be worn at all times when ambulating. Will plan to move forward with operating room based incision and drainage of the right foot this afternoon. Continue n.p.o. until postop. Thank you for consulting podiatry to aid in the care of this patient. Will continue to follow while she remains in house and recommend following up within 1 week of discharge in the podiatry clinic. Admission and Anticipated Discharge Date Admission Date: May 18, 2025 Subjective Patient seen resting comfortably in hospital bed. She reports decreased pain to the right foot over the past 24 hours. She received postop shoe and reports decreased pain with ambulation in postop shoe. Denies nausea vomiting fever chills. N.p.o. since midnight in anticipation of OR based I&D. Review of Systems Review of Systems: Denies nausea, vomiting, fever, chills, shortness of breath, chest pain. Reports moderate to severe pain right foot specifically the second toe. Increased pain with weightbearing in the right foot. Physical Exam Physical Exam: Const: Appears well developed and well nourished. No signs of acute distress present. CV: Extremities: No cyanosis or edema. Capillary refill time is less than 2 seconds all digits of the bilateral foot. Posterior tibial and dorsalis pedis pulses are palpable bilateral. Lymph: No palpable or visible regional lymphadenopathy. Skin: No scars, rashes, lesions or ecchymosis. Neuro: Sensation intact to light touch in all areas of the foot and ankle. Psych: Mood/Affect: Mood is normal. Affect is normal. Cognition: Orientation is intact to person, place and time. Focused lower extremity musculoskeletal exam: Leg: No pain with compression of the calf muscle. Ankles: Normal to inspection and palpation. No swelling bilaterally. No tenderness bilaterally. Motor strength is intact. Range of motion pain-free and unlimited. Feet: Normal to inspection and palpation. No obvious instability. Motor strength is intact. Range of motion pain-free and unlimited. Persistent erythema and edema to the right second toe. Moderate drainage to dressing. Was able to express another 2 ml of purulent drainage through a focal opening the dorsum of the toe. Results & Data Results & Data Vital Signs (Past 12 Hours) Vital Signs Temp Pulse Pulse Resp BP Pulse Ox O2 Del Method 05/20/25 07:50 37.3 C 79 18 158/72 H 98 Room Air 05/20/25 07:08 37.2 C 81 14 151/76 H 95 Room Air Coding Level of Care Code 41343 SUB INP/OBS CARE 235MIN Diagnoses Cellulitis L03.90 MRSA cellulitis L03.90; B95.62 Abscess of toe of right foot L02.611
[2025-05-20] MEDS ORDERED: LIDOCAINE 2% 2 ML VIAL/AMP(20MG/ML) INFIL ONE (14:32)
[2025-05-20] MEDS ORDERED: MIDAZOLAM HCL 1 MG/ML 2ML VIAL ONE (14:32)
[2025-05-20] MEDS ORDERED: PROPOFOL IV EMULSION 10 MG/ML 20 ML VIAL IV ONE (14:32)
--- NOTE | 2025-05-20 16:05 | Anesthesiology Consultation ---
Date of Service May 20, 2025 Assessment & Plan Chart Review Chart Review: Acceptable Risk for Surgery and Patient NOT seen in Pre Admission Testing Consults Requested none History Surgery Operation Date: 05/20/25 11:45 Proposed Procedures p Right Foot Incision and Drainage - Nolan Miller DPM Height/Weight Height: 4 ft 11.5 in Weight: 73.119 kg Allergies Allergy/AdvReac Type Severity Reaction Status Date / Time amoxicillin [From Augmentin] Allergy Verified 11/13/24 16:04 clavulanic acid Allergy Verified 11/13/24 16:04 [From Augmentin] nicotine [From Nicoderm CQ] Allergy Verified 11/13/24 16:04 sulfamethoxazole Allergy Verified 11/13/24 16:04 [From Septra] trimethoprim [From Septra] Allergy Verified 11/13/24 16:04 Medications Home Medications Medication Instructions Recorded Confirmed Last Taken cholecalciferol (vitamin D3) 50 0 mcg PO DAILY 03/29/20 11/13/24 Unknown mcg (2,000 unit) capsule fluticasone propionate 50 See Rx Instructions .Route .COMPLEX 03/29/20 11/13/24 Unknown mcg/actuation nasal spray,suspension multivitamin (Daily Multi-Vitamin 1 tab PO DAILY 03/29/20 11/13/24 Unknown tablet) venlafaxine 37.5 mg 37.5 mg PO DAILY 03/29/20 11/13/24 Unknown capsule,extended release 24 hr Tylenol See Rx Instructions .Route 08/29/23 11/13/24 Unknown .COMPLEX PRN pain/fever ibuprofen See Rx Instructions .Route 08/29/23 11/13/24 Unknown .COMPLEX PRN pain/fever atorvastatin 10 mg tablet 10 mg PO DAILY 12/12/23 11/13/24 Unknown nystatin-triamcinolone 100,000 1 applic topical BID vulvitis #15 12/12/23 11/13/24 Unknown unit/gram-0.1 % topical ointment grams nitrofurantoin macrocrystal 100 mg 100 mg PO BID #10 caps 11/14/24 Unknown capsule Active Medications Generic Name Dose Route Start Last Admin Trade Name Freq PRN Reason Stop Dose Admin Acetaminophen 650 mg 05/18/25 17:15 05/20/25 13:54 Acetaminophen 325 Mg Tab PO 06/17/25 17:14 650 mg Q4H PRN Administration pain/fever Atorvastatin Calcium 10 mg 12/16/25 09:00 05/20/25 07:55 Atorvastatin 10 Mg Tab PO 06/18/25 08:59 10 mg DAILY LAURA Administration Heparin Sodium (Porcine) 5,000 units 05/18/25 22:00 05/20/25 14:00 Heparin Sod 5,000 Unit/0.5 Ml Vial SQ 06/17/25 21:59 Not Given Q8 LAURA Vancomycin HCl 1,000 mg/ 270 mls @ 200 mls/hr 05/19/25 05:00 05/20/25 07:51 Sodium Chloride IV 06/30/25 04:59 Infused Q12H LAURA Infusion Multivitamins 1 tab 05/19/25 09:00 05/20/25 07:56 Multivitamin Tab PO 06/18/25 08:59 1 tab QAM LAURA Administration Tramadol HCl 50 mg 05/19/25 12:21 05/19/25 13:03 Tramadol Hcl 50 Mg Tablet PO 06/18/25 12:20 50 mg Q4H PRN Administration Pain Venlafaxine HCl 37.5 mg 05/19/25 09:00 05/20/25 07:55 Venlafaxine Hcl Xr 37.5 Mg Capxr PO 06/18/25 08:59 37.5 mg DAILY LAURA Administration NPO Date Last Intake of Fluids: 05/19/25 Time Last Intake of Fluids: 23:55 Date Last Intake of Solids: 05/20/25 Time Last Intake of Solids: 23:55 Past Medical History Medical History Urinary urgency Sleep apnea Sensorineural hearing loss of both ears Prediabetes Obesity Mixed hyperlipidemia Hypertension Hemorrhoids Gastroparesis Esophageal reflux Asthma Allergic rhinitis Past Family History Family History Mother Myelogenous leukemia Son Thyroid cancer Father Lung cancer Myocardial infarction Prostate cancer Brother No problems noted. Aunt Breast cancer Denies family history of Ovarian cancer Colorectal cancer Past Surgical History Surgical History Hx of tubal ligation History of gastric surgery Hx of cholecystectomy Social History Smoking Status: Former smoker Do You Dip or Chew Tobacco: No Hx Alcohol Use: Yes alcohol intake frequency: holidays/special occasions only Hx Substance Use: No Physical Exam Vital Signs Last Vital Signs Temp 37.1 C 05/20/25 16:02 Pulse 78 05/20/25 16:02 Resp 20 05/20/25 16:02 BP 153/101 H 05/20/25 16:02 Pulse Ox 97 05/20/25 16:02 O2 Del Method Room Air 05/20/25 16:02 Testing Laboratory Results 05/20/25 04:55 05/20/25 04:55 PT 10.5 Seconds (9.0-12.0) 05/18/25 15:35 INR 1.0 (0.9-1.1) 05/18/25 15:35 APTT 28 Seconds (21-31) 05/18/25 15:35 05/18/25 15:35 Aerobic Blood Culture - Preliminary Blood No growth in Aerobic bottle after 48 hours. Anaerobic Blood Culture - Preliminary No growth in Anaerobic bottle after 48 hours. 05/19/25 13:20 Gram Stain - Final Toe,Right Second Aerobic and Anaerobic Culture - Preliminary Staphylococcus aureus 05/18/25 15:15 Gram Stain - Final Toe,Right Second Aerobic and Anaerobic Culture - Preliminary Staph aureus MRSA 05/18/25 15:54 Aerobic Blood Culture - Preliminary Blood No growth in Aerobic bottle after 24 hours. Anaerobic Blood Culture - Preliminary No growth in Anaerobic bottle after 24 hours.
[2025-05-20] MEDS ORDERED: ONDANSETRON INJ 2 MG/ML 2 ML VIAL IV PRN (16:09)
[2025-05-20] MEDS ORDERED: ATROPINE SULFATE 0.1 MG/ML 10ML SYR IV PRN (16:09)
--- NOTE | 2025-05-20 16:11 | Operative Report ---
PG Post Operative Report Pre & Post Diagnosis Operation Date: 05/20/25 11:45 Pre-Op Diagnosis: TOE INFECTION, abscess right second toe Post-Op Diagnosis: TOE INFECTION, abscess right second toe I identified the patient and participated in the time-out.: Yes Procedure Operation Date: 05/20/25 11:45 Actual Procedures p Right Foot Incision and Drainage(Right) - Nolan Miller DPM Surgeon Nolan Miller DPM Psychiatric Specialist None Estimated Blood Loss 5 Findings Consistent with Post-Op Diagnosis Specimens Culture swab wound base right second toe Drains Quarter inch iodoform packing gauze right second toe Complications None Indications Abscess extending into subcutaneous tissue of the right second toe Description of Procedure Patient is brought in the operating room left on the litter for surgical procedure. Timeout is held confirming correct patient, side, site, procedure with all necessary parties confirming. Following sedation local anesthesia obtained about the patient's right second ray utilizing a total of 10 cc of half percent Marcaine plain in a modified Scott block fashion. Right lower extremity scrubbed prepped and draped in usual aseptic fashion to the level of a well- padded ankle tourniquet. Repeat timeout confirming correct patient, side, site, procedure with onset parties confirming. Attention is directed to the dorsal aspect of the right second toe where open wound is noted just proximal to the proximal interphalangeal joint. Wound is probed with a [place] elevator and abscess is deloculated. Purulent drainage is expressed from the wound. 15 blade is utilized to extend the dorsal wound medially to the medial aspect of the digit exposing wound base. All nonviable tissue from the wound base is debrided with a curette and rongeur. Wound was flushed with copious amounts of normal sterile saline. Vancomycin powder placed within the wound bed. Wound was packed with quarter inch iodoform packing gauze gently. Dressed with 4 x 4's, ABD pad Sedrick and lightly applied Kofi bandage total dressings in place. Patient tolerated the procedure and anesthesia well. She is transferred to recovery room with vital signs stable and vascular status intact to all digits of the right foot. Following brief period of postoperative monitoring in recovery room patient is transferred back to her bed on the floor for ongoing IV antibiotics and medical management. Plan to change dressing postop day 1 reevaluate wound bed. Anticipate podiatry clearance for discharge following first dressing change assuming no further purulent drainage or signs of declining wound to the right second toe. Patient okay to weight-bear as tolerated in postop shoe. Will continue to change her dressing once daily while she remains in house and patient will need to change dressing at home once daily. She will follow-up in the wound care center within 2 weeks of discharge. I attest to the content of the Intraoperative Record and any orders documented therein. Any exceptions are noted below.
[2025-05-20] MEDS ORDERED: DEXAMETHASONE SOD INJ 4 MG/ML VIAL ONE (16:22)
[2025-05-20] MEDS ORDERED: ONDANSETRON INJ 2 MG/ML 2 ML VIAL ONE (16:22)
[2025-05-20] MEDS: BUPIVACAINE 0.5 % 5 MG/1 ML MPF 30ML VIAL ONE (16:28)
[2025-05-20] MEDS: VANCOMYCIN HCL 1000MG/20ML VIAL ONE (16:34)
--- NOTE | 2025-05-20 16:42 | Post Operative Brief Note ---
PG Immediate Post Op with CF Date of Surgery May 20, 2025 Pre & Post Diagnosis Operation Date: 05/20/25 11:45 Pre-Op Diagnosis: TOE INFECTION Post-Op Diagnosis: TOE INFECTION I identified the patient and participated in the time-out.: Yes Procedure Operation Date: 05/20/25 11:45 Actual Procedures p Right Foot Incision and Drainage(Right) - Nolan Miller DPM Surgeon Nolan Miller DPM [place] Presser None Estimated Blood Loss 5 Findings Consistent with Post-Op Diagnosis Specimens Specimen Description: culture right 2nd toe Complications none
--- NOTE | 2025-05-20 17:05 | Anesthesiology Progress Note ---
Date of Service May 20, 2025 Anesthesia Post Procedure Vital Signs Vital Signs: Temp Pulse Pulse Resp BP Pulse Ox O2 Del Method 05/20/25 16:55 80 17 107/73 99 Room Air 05/20/25 16:49 36.2 C L 68 16 95/51 L 98 Oxymask 05/20/25 16:02 37.1 C 78 20 153/101 H 97 Room Air 05/20/25 14:16 36.8 C 69 16 164/78 H 97 Room Air 05/20/25 12:47 36.6 C 72 20 150/78 H 97 Room Air 05/20/25 07:50 37.3 C 79 18 158/72 H 98 Room Air 05/20/25 07:08 37.2 C 81 14 151/76 H 95 Room Air 05/19/25 23:59 37.2 C 79 18 147/75 H 96 Room Air O2 Flow Rate 05/20/25 16:55 05/20/25 16:49 10 05/20/25 16:02 05/20/25 14:16 05/20/25 12:47 05/20/25 07:50 05/20/25 07:08 05/19/25 23:59 Pain Intensity Right Toe: Pain Intensity: 3 Transfer of Care Handoff Completed per policy Notes Mental Status: alert / awake / arousable Patient Amnestic to Procedure: Yes Nausea / Vomiting: adequately controlled Pain: adequately controlled Airway Patency, RR, SpO2: stable & adequate BP & HR: stable & adequate Hydration State: stable & adequate Anesthetic Complications: no major complications apparent and Pt Satisfied with anesthetic care
[2025-05-21 07:31] LABS: Hematocrit (blood only) 35.2 % (37.0-47.0); Hemoglobin 12.2 g/dL (12.0-16.0); Mean Corpuscular Hemoglobin 31.2 pg (25.0-34.0); Mean Corpuscular Volume 90.0 fL (80.0-100.0); Platelet Count 474 K/uL (130-400); RDW Standard Deviation 40.7 fL (36.4-46.3); Red Blood Count 3.91 M/uL (4.20-5.40); White Blood Count 7.84 K/ul (4.8-10.8)
[2025-05-21 07:48] LABS: Anion Gap 5.0 (3-11); Blood Urea Nitrogen 8.0 mg/dl (6-23); Calcium 8.8 mg/dl (8.6-10.3); Carbon Dioxide 28.0 mmol/L (21-32); Chloride 107.0 mmol/L (98-107); Creatinine Clr Calc Pharmacy 69.0 ml/min; Glucose 117.0 mg/dl (70-99(Fasting)); Potassium 4.1 mmol/L (3.5-5.1); Sodium 140.0 mmol/L (136-145)
[2025-05-21 07:52] VITALS: RESP 18
--- NOTE | 2025-05-21 09:15 | Podiatry Progress Note ---
Date of Service May 21, 2025 Assessment & Plan (1) Cellulitis: (2) MRSA cellulitis: (3) Abscess of toe of right foot: Plan Abscess/wound right second toe associated cellulitis: - Status post bedside I&D right second toe 05/19/2025. Postop day 1 status post OR based I&D right second toe 05/20/2025. - Deep culture right second toe 05/19/2025: Preliminary growing Staph aureus - Wound culture right second toe 05/18/2025: MRSA. Wound culture right second toe 05/19/2025: MRSA. Deep tissue culture 05/20/2025 right second toe intraoperative: Preliminary Staph aureus - Blood culture 05/18/2025: No growth 48 hours - Continues IV Rocephin and vancomycin - Continue postop shoe to be worn at all times when ambulating. Surgical wound dressing was changed and packing was pulled today with no infectious appearing drainage from second toe. There is decreased erythema and edema to the right second toe and right forefoot. Patient okay for discharge from podiatry standpoint with transition to p.o. antibiotics to complete a 2- week course of antibiotic therapy. Comfortable basing p.o. antibiotics off culture and sensitivity results from 05/19/2025 with continuation of either p.o. Bactrim or or doxycycline. Will continue to follow patient in an outpatient setting to determine any further need for antibiotic therapy and will monitor results of intraoperative culture to determine if antibiotic adjustment is necessary as an outpatient. Patient is educated on daily dressing changes. She will remove packing, flush wound repack with quarter inch Nu Gauze and dressed with Aquacel Ag and a dry sterile dressing once daily. Patient's follow-up was discussed with the wound care center and we are in the process of getting her scheduled for follow-up within the next 2 weeks. Admission and Anticipated Discharge Date Admission Date: May 18, 2025 Subjective Postop day 1 status post I&D of the right second toe. Patient resting comfortably in hospital bed with surgical dressing in place. Postop shoe in place. Patient reports ambulating with and without postop shoe without discomfort to the right second toe. Review of Systems Review of Systems: Denies nausea, vomiting, fever, chills, shortness of breath, chest pain. Denies pain in the right foot at baseline. Mild discomfort with pressure to the right second toe. Physical Exam Physical Exam: Const: Appears well developed and well nourished. No signs of acute distress present. CV: Extremities: No cyanosis or edema. Capillary refill time is less than 2 seconds all digits of the bilateral foot. Posterior tibial and dorsalis pedis pulses are palpable bilateral. Lymph: No palpable or visible regional lymphadenopathy. Skin: Psoriatic plaques to the anterior right ankle Neuro: Sensation intact to light touch in all areas of the foot and ankle. Psych: Mood/Affect: Mood is normal. Affect is normal. Cognition: Orientation is intact to person, place and time. Focused lower extremity musculoskeletal exam: Leg: No pain with compression of the calf muscle. Ankles: Normal to inspection and palpation. No swelling bilaterally. No tenderness bilaterally. Motor strength is intact. Range of motion pain-free and unlimited. Feet: Linear incision to the dorsal aspect of the base of the right second toe remains open to heal via secondary intention. Decreased erythema and edema to the right forefoot and second toe over the past 12 hours. There is no active drainage from the wound. Packing is pulled without purulent drainage identified the packing. Wound bed is mixed subcutaneous tissue, tendon and joint capsule. No necrotic appearing tissue to the wound bed. Results & Data Results & Data Vital Signs (Past 12 Hours) Vital Signs Temp Pulse Resp BP Pulse Ox O2 Del Method 05/21/25 07:51 37.1 C 74 18 143/76 H 95 Room Air 05/21/25 02:59 37.1 C 72 16 147/73 H 96 Room Air 05/20/25 23:17 36.8 C 85 16 143/70 H 96 Room Air Coding Level of Care Code 32219 SUB INP/OBS CARE 2/35MIN Diagnoses Cellulitis of toe of right foot L03.031 Site of cellulitis: extremity Site of cellulitis of extremity: toe Laterality: right MRSA cellulitis L03.90; B95.62 Abscess of toe of right foot L02.611 (1) Cellulitis Site of cellulitis: extremity Site of cellulitis of extremity: toe Laterality: right Qualified Code(s): L03.031 - Cellulitis of right toe
--- NOTE | 2025-05-21 10:16 | Discharge Summary ---
Discharge Summary Date of Service May 21, 2025 Principal Dx & Hospital Course #1 = Principal Diagnosis (1) Toe infection: -right 2nd toe with erythema, swelling, and purulent discharge -rocephin/vancomycin started -f/u wound cultures -podiatry consult appreciated -s/p bed side I&D 05/19 - repeat I&D -ID consult appreciated -d/c home on doxycycline 100mg BID for 7 days (2) Mixed hyperlipidemia: -atorvastatin (3) Depression: -venlafaxine Plan Heparin SQ for DVT px Admission HPI Per Admitting Provider Pt is a 75 y/o female with pmh of psoriasis who presents with 2 to 3 day of redness, swelling and drainage from her right 2nd toe. Pt states she may have had a "bug bite." She attempted to drain her toe at home by using a needle. Here in the ER there was purulent drainage noted by the ER. Her WBC was 11k. She had an X-ray of the foot which showed erosion of the distal tuft of the distasl phalanx of right second toe, osteomyelitis cannot be ruled out. Pt was started on rocephin and vancomycin in the ER and will be admitted for further treatment and evaluation by podiatry. Discharge Exam GENERAL APPEARANCE NAD, activity normal for age, well developed/ well nourished, no cyanosis, pallor, or diaphoresis. EYES lids/conjunctiva normal. EARS/NOSE/THROAT Mucous membranes moist, nares normal, lips/teeth normal uvula midline without oral pharyngeal erythema, exudate or swelling TMs normal bilaterally. No lymphangitis/lymphedema. HEAD/NECK normocephalic atraumatic, no facial trauma, neck is supple. RESPIRATORY respiratory effort normal, speaks in full sentences, no tripod position, no accessory muscle use. Lungs clear to auscultation without rhonchi, wheezes, rales CARDIAC Regular rate and rhythm, no edema. ABDOMINAL Soft, ND/NT. No evidence of fluid wave. No pulsatile masses on exam, rebound tenderness, Wayne sign or pain over Mcburney's point. MUSCLES/EXTREMITIES No abnormal range of motion, +swelling,erythema, and purulent drainage of right 2nd toe SKIN Warm, pink and dry. No rashes, dermatoses, petechiae or lesions. NEUROLOGICAL Speech is clear and appropriate. Normal level of consciousness. Gait and coordination are normal. 5/5 strength in all extremities. PSYCH Normal mood and affect. Judgement/competence is appropriate Discharge Plan Discharge Items Patient Disposition: Home - Self-Care Reason For Visit: TOE INFECTION Discharge Diagnosis: Toe infection Condition on Discharge: Good Activity: Resume your previous activity Non-emergency contact: Primary Care Provider Call non-emergency contact if: you have any medication questions Follow-up/Referrals: Christine Holt [Primary Care Provider] - Diet: Regular Addtl Attending Provider Instructions: Follow up with Podiatry in 2 weeks Pending Studies at Discharge: No Stand-Alone Forms: [facility] [employer], Smoking Cessation Medications and DC Order Prescriptions: New doxycycline hyclate 100 mg capsule 100 mg PO Q12H 7 Days Qty: 14 0RF Continued cholecalciferol (vitamin D3) 50 mcg (2,000 unit) capsule 0 mcg PO DAILY Rx Instructions: unable to verify with patient/pharmacy 08/29/23 fluticasone propionate 50 mcg/actuation spray,suspension See Rx Instructions .ROUTE .COMPLEX Rx Instructions: unable to verify with patient/pharmacy 08/29/23 multivitamin [Daily Multi-Vitamin] Tablet 1 tab PO DAILY Rx Instructions: unable to verify with patient/pharmacy 08/29/23 venlafaxine 37.5 mg capsule,extended release 24hr 37.5 mg PO DAILY atorvastatin 10 mg tablet 10 mg PO DAILY nystatin-triamcinolone 100,000-0.1 unit/gram-% ointment 1 applic topical BID Qty: 15 1RF Rx Instructions: use externally bid for 7-10 days PRN Tylenol See Rx Instructions .ROUTE .COMPLEX PRN (Reason: pain/fever) Rx Instructions: as directed, otc ibuprofen See Rx Instructions .ROUTE .COMPLEX PRN (Reason: pain/fever) Rx Instructions: as directed, otc Discontinued nitrofurantoin macrocrystal 100 mg capsule 100 mg PO BID Qty: 10 0RF Rx Instructions: must administer with a meal/food Discharge Orders: Discharge Order (Routine); Ordered 05/21/25 Ordered By: Vega March Admission Data Admit Date/Time: 05/18/25 17:15 Attending Provider: Vega March Admit Provider: Vega March Primary Care Provider: Christine Holt Other Providers: Vega March; Nolan Miller; Terri Sweeney; Melissa Lombardi; Kaycee Linn; Cm Wright; Juliet Woody; Xochitl Estevez Hospital Stay Data Consultations 05/18/25 17:03 ED Decision to Admit Stat 05/18/25 17:12 Consult Podiatry Routine 05/19/25 07:57 Consult Infectious Diseases Routine Procedures Performed Operation Date: 05/20/25 15:45 Actual Procedures p Right Foot Incision and Drainage(Right) - Nolan Miller DPM Pending Results Patient Have Any Pending Studies at Discharge: No Discharge Instructions Given to Patient (Per Discharging Provider) Follow up with Podiatry in 2 weeks Total Time Total Time Spent Total Time Spent (In Minutes): 50 Coding Level of Care Code 63131 INP/OBS DISCH >30 MIN Diagnoses Toe infection L08.9 Mixed hyperlipidemia E78.2 Depression F32.A
[2025-05-21 11:18] VITALS: BP 155/82; PULSE 75; TEMP 98.6; O2SAT 97
[2025-05-21] MEDS: INFLUENZA VACC TS2025-26(65y+)/PF (IIV3) 0.5mL Syr IM ONE (11:44)
--- NOTE | 2025-05-22 10:26 | Coding Query ---
DEBRIDEMENT DOCUMENTATION To promote full compliance with coding requirements relating to patient care, physician participation is requested in all cases of correctional guard uncertainty. Please assist us with the question(s) below: Please place an X in the parenthesis (x). If other, please document the finding: 05/20 OR debridement right foot toe Type of Debridement: (x ) Excisional Debridement- Cutting away necrotic, devitalized tissue or slough to the level of viable tissue using a sharp instrument (i.e. scalpel, scissors, etc.) ( ) Non Excisional Debridement- The removal of necrotic, devitalized tissue or slough by means of scraping, mechanical brushing, flushing, or washing (i.e. irrigation,whirlpool);minor removal of loose fragments. ( ) Other (please specify): Instrument Used: (x ) Scissors ( x) Scalpel ( x) Curette ( ) Other (please specify): Depth of Debridement: ( ) Skin ( ) Skin and Subcutaneous Tissue ( x) Skin, Subcutaneous Tissue and Muscle ( ) Skin, Subcutaneous Tissue, Muscle and Bone ( ) Other (please specify): Please Specify the Size of Debridement in cm2: 1.5 x 0.5 x 1.0 cm Thank you EFRAIN Morales CCS
== END 2025-05-21 12:26 | disposition home or self-care (01) | DRG 581 ==
LOC: ED 14:50 → 3N 17:15